=== PATIENT | female | born 1955 | race African-American/Black ===

== ENCOUNTER 2018-10-28 15:37 | Inpatient (IN) ==
[2018-10-28] MEDS: Heparin Drip 25,000 UNIT/250 ML BAG IV.CONT PRN (22:30)
--- NOTE | 2018-10-28 23:34 | P.HPIM ---
History of Present Illness Service: [facility] Primary Care Physician: Arthur Tran Chief Complaint: Cough and congestion History of Present Illness: 63-year-old female with a history of RA, asthma, hypertension and diabetes presented to the ED with complaints of cough and congestion with body aches for the last 2 weeks. Patient states she was seen at an urgent care approximately 1 week ago in which they stated to continue on taking [id number] medications. She states she went through multiple different products and still with no relief. She came into the [place] ER because she was not getting better. She does complain of slight chest pain more so in her left upper extremity, dull in nature, with associated nausea and vomiting. She states the over the counter medications are not helping. She states she has been having intermittent fevers, chills, dysuria and shortness of breath with cough. Inpatient Certification Inpatient Certification: I certify that the inpatient services were ordered in accordance with Medicare regulations governing the order. This includes certification that hospital inpatient services are reasonable and necessary and in the case of services not specified as inpatient-only under 42 CFR 419.22(n), that they are appropriately provided as inpatient services in accordance to with the 2-midnight benchmark under 43 CFR 412.3(e) Estimated Total Length of Stay (Days): 2 Plans for Post Hospital Care: Home Review of Systems Review of Systems: all other systems reviewed are negative [facility] Medical History Medical History Asthma (Acute) Diabetes mellitus (Acute) GERD (gastroesophageal reflux disease) (Acute) HTN (hypertension) (Acute) Hypercholesterolemia (Acute) Migraines (Acute) Rheumatoid arteritis (Acute) Surgical History Surgical History H/O hernia repair (Acute) H/O tubal ligation (Acute) H/O: hysterectomy (Acute) History of appendectomy (Acute) H/O bariatric surgery (Acute) Family History Family History Father Diabetes Social History Social History Substance History: No History of Abuse Second Hand Smoke Exposure: No Smoking Status: Never smoker How Often Do You Have a Drink Containing Alcohol: Never Immunization History Tetanus Immunization: <5 Years Hx Influenza Vaccine This Season: Yes Medications and Allergies Allergies Allergy/AdvReac Type Severity Reaction Status Date / Time aspirin Allergy Mild Itching Verified 10/28/18 16:04 lansoprazole Allergy Mild Itching Verified 10/28/18 16:04 omeprazole Allergy Mild Itching Verified 10/28/18 16:04 pantoprazole Allergy Mild Itching Verified 10/28/18 16:04 penicillin G Allergy Mild Itching Verified 10/28/18 16:04 Sulfa (Sulfonamide Allergy Mild Itching Verified 10/28/18 16:04 Antibiotics) Home Medications Medication Instructions Recorded Confirmed Type ergocalciferol (vitamin D2) 50,000 unit PO QWEEK 10/28/18 10/29/18 History [Vitamin D2] ezetimibe [Zetia] 10 mg PO DAILY 10/28/18 10/29/18 History folic acid 1 mg PO DAILY 10/28/18 10/29/18 History gabapentin 300 mg PO TID 10/28/18 10/29/18 History lidocaine [Lidocaine Pain Relief] 1 patch TOPICAL BID 10/28/18 10/29/18 History metformin 500 mg PO BID 10/28/18 10/29/18 History methotrexate (PF) 0.7 ml SUBCUT QWEEK 10/28/18 10/29/18 History prednisone 2.5 mg PO DAILY 10/28/18 10/29/18 History promethazine [Phenergan] 25 mg NV DAILY PRN 10/28/18 10/29/18 History ranitidine HCl [Zantac 75] 75 mg PO BID PRN 10/28/18 10/29/18 History topiramate [Topamax] 25 mg PO BID 10/28/18 10/29/18 History tramadol 50 mg PO Q6H PRN 10/28/18 10/29/18 History Active Medications: Active Medications Acetaminophen (Tylenol) 650 mg PO Q4H PRN PRN Reason: Temp > 100.4 Heparin Sodium (Porcine) (Heparin Inj) 2,500 units IV.PUSH UNSCH PRN PRN Reason: aPTT 25-39 Heparin Sodium (Porcine) (Heparin Inj) 5,000 units IV.PUSH UNSCH PRN PRN Reason: aPTT < 25 Heparin Sodium/Dextrose (Heparin/D5w 25,000 U/250 Ml) 25,000 unit in 250 mls @ 0 mls/hr IV.CONT TITRATE PRN; Protocol PRN Reason: Per Protocol Nitroglycerin (Nitrostat Sl) 0.4 mg SL Q5M PRN PRN Reason: CHEST PAIN Ondansetron HCl (Zofran Inj) 4 mg IV.PUSH Q6H PRN PRN Reason: NAUSEA OR VOMITING Sodium Chloride (Ns Flush) 2 ml IV.FLUSH BID HARRIS Sodium Chloride (Ns Flush) 2 ml IV.FLUSH PRN PRN PRN Reason: FLUSH AFTER USING IV ACCESS Physical Exam Vital signs: Intake & Output 10/28/18 10/28/18 10/29/18 06:59 18:59 06:59 Weight 87 kg Other: Weight On Admission 87 kg Narrative: GENERAL: Well-nourished patient in no acute distress SKIN: Warm and dry. No open lesions or abrasions EYES: No scleral icterus. No injection or drainage. NECK: Supple, trachea midline. No JVD or lymphadenopathy. CARDIOVASCULAR: Regular rate and rhythm without murmurs, gallops, or rubs. RESPIRATORY: Breath sounds equal bilaterally. No accessory muscle use. GASTROINTESTINAL: Abdomen soft, non-tender, nondistended. MUSCULOSKELETAL: No cyanosis, or edema. Caprini VTE Risk Assessment Caprini VTE Risk Assessment: No/Low Risk (score <= 1) Caprini Risk Assessment Model: Point Value = 1 Point Value = 2 Point Value = 3 Point Value = 5 Age 41-60 Minor surgery BMI > 25 kg/m2 Swollen legs Varicose veins or History of unexplained or recurrent spontaneous Oral contraceptives or hormone replacement Sepsis (< 1 month) Serious lung disease, including pneumonia (< 1 month) Abnormal pulmonary function Acute myocardial infarction Congestive heart failure (< 1 month) History of inflammatory bowel disease Medical patient at bed rest Age 61-74 Arthroscopic surgery Major open surgery (> 45 min) Laparoscopic surgery (> 45 min) Malignancy Confined to bed (> 72 hours) Immobilizing plaster cast Central venous access Age >= 75 History of VTE Family history of VTE Factor V Leiden Prothrombin [id number] Lupus anticoagulant Anticardiolipin antibodies Elevated serum homocysteine Heparin-induced thrombocytopenia Other congenital or acquired thrombophilia Stroke (< 1 month) Elective arthroplasty Hip, pelvis, or leg fracture Acute spinal cord injury (< 1 month) Prophylaxis Regimen: Total Risk Factor Score Risk Level Prophylaxis Regimen 0-1 Low Early ambulation 2 Moderate Order ONE of the following: *Sequential Compression Device (SCD) *Heparin 5000 units SQ BID 3-4 Higher Order ONE of the following medications: *Heparin 5000 units SQ TID *Enoxaparin/Lovenox 40 mg SQ daily (WT < 150 kg, CrCl > 30 mL/min) *Enoxaparin/Lovenox 30 mg SQ daily (WT < 150 kg, CrCl > 10-29 mL/min) *Enoxaparin/Lovenox 30 mg SQ BID (WT < 150 kg, CrCl > 30 mL/min) AND/OR *Sequential Compression Device (SCD) 5 or more Highest Order ONE of the following medications: *Heparin 5000 units SQ TID (Preferred with Epidurals) *Enoxaparin/Lovenox 40 mg SQ daily (WT < 150 kg, CrCl > 30 mL/min) *Enoxaparin/Lovenox 30 mg SQ daily (WT < 150 kg, CrCl > 10-29 mL/min) *Enoxaparin/Lovenox 30 mg SQ BID (WT < 150 kg, CrCl > 30 mL/min) AND *Sequential Compression Device (SCD) Assessment and Plan Plan 63-year-old female with a history of RA, asthma, hypertension and diabetes presented to the ED with complaints of cough and congestion with body aches for the last 2 weeks. NSTEMI, with atypical chest pain Troponin 0.19 -Serial troponin and EKGs -Heparin drip -Consult to cardiology for evaluation Elevated BNP, no history of CHF BNP 335 -2D echo ordered Hypertension, chronic -Resume home medications and monitor vitals Diabetes, chronic Accu-Cheks with sliding scale insulin Hold metformin for now RA, chronic -Resume home medications DVT prophylaxis: Heparin The exam, history, and the medical decision-making described in the above note were completed with the assistance of the mid-level provider. I reviewed and agree with the findings presented. I attest that I had a [id number] encounter with the patient on the same day, and personally performed and documented my assessment and findings in the medical record. H&P: Quality VTE Deep Vein Thrombosis/Pulmonary Embolism Present on Admission: No
[2018-10-29 00:40] LABS: Troponin I 0.15 ng/mL (0.02-0.05)
[2018-10-29 00:52] LABS: CKMB Percent 1.3 % (0.0-4.0); Creatine Kinase MB 2.5 ng/mL (0.5-3.6)
[2018-10-29] MEDS ORDERED: Heparin 10,000 UNITS/10 ML Vial (for IV use) IV.PUSH PRN ×2 (04:23→04:31)
[2018-10-29 05:11] LABS: Baso % (Auto) 0.4 % (0.0-2.0); Hemoglobin 13.3 gm/dL (11.6-15.3); Lymph # (Auto) 1.5 th/mm3 (1.0-4.8); Mean Corpuscular HGB Conc 33.3 % (32.0-36.0); Mean Corpuscular Hemoglobin 31.6 pg (27.0-34.0); Mean Corpuscular Volume 94.9 fL (80.0-100.0); Mean Platelet Volume 8.2 fL (7.0-11.0); Mono # (Auto) 0.1 th/mm3 (0.0-0.9); Mono % (Auto) 2.3 % (0.0-8.0); Neut # (Auto) 4.2 th/mm3 (1.8-7.7); Neut % (Auto) 72.3 % (16.0-70.0); Platelet Count 238 th/mm3 (150-450); Red Blood Count 4.21 mil/mm3 (4.00-5.30); Red Cell Distribution Width 14.2 % (11.6-17.2); White Blood Count 5.8 th/mm3 (4.0-11.0)
[2018-10-29 05:30] LABS: Anion Gap 10 meq/L (5-15); Blood Urea Nitrogen 10 mg/dL (7-18); Calcium 8.6 mg/dL (8.5-10.1); Carbon Dioxide 20.4 meq/L (21.0-32.0); Chloride 113 meq/L (98-107); Glomerular Filtration Rate Greater Than 89 mL/min (>89); Glucose,Random 136 mg/dL (74-106); Potassium 4.2 meq/L (3.5-5.1); Sodium 143 meq/L (136-145)
[2018-10-29 05:33] LABS: Creatine Kinase 198 U/L (26-192); Troponin I 0.13 ng/mL (0.02-0.05)
[2018-10-29 05:46] LABS: CKMB Percent 1.1 % (0.0-4.0); Creatine Kinase MB 2.1 ng/mL (0.5-3.6)
--- NOTE | 2018-10-29 10:15 | P.PNIM ---
Subjective Interval history: Patient in the bed appears in nad. She is awaiting for stress test. No chest pain overnight. Some sob. No n/v/d/c. Physical Exam Vital signs: Vital Signs 10/29/18 00:00 10/29/18 02:00 10/29/18 03:00 Temperature 98.4 F Pulse Rate 88 84 87 Respiratory Rate 20 Blood Pressure 105/67 Pulse Oximetry 94 L 10/29/18 04:00 10/29/18 05:00 10/29/18 06:00 Temperature 97.8 F Pulse Rate 83 97 H 91 H Respiratory Rate 16 Blood Pressure 135/81 Pulse Oximetry 94 L 10/29/18 07:00 10/29/18 09:23 Temperature 97.9 F Pulse Rate 80 98 H Respiratory Rate 18 Blood Pressure 110/70 Pulse Oximetry 96 Intake & Output 10/28/18 10/29/18 10/29/18 18:59 06:59 18:59 Intake Total 480 / 480 Output Total 650 / 650 Balance -170 / -170 Weight 87 kg Intake: Oral 480 / 480 Output: Urine 650 / 650 Other: Date of Last Bowel Movement 10/29/18 10/29/18 # Bowel Movements 1 Weight On Admission 87 kg Narrative: GENERAL: Well-nourished patient in no acute distress CARDIOVASCULAR: Regular rate and rhythm without murmurs, gallops, or rubs. RESPIRATORY: Breath sounds equal bilaterally. No accessory muscle use. GASTROINTESTINAL: Abdomen soft, non-tender, nondistended. MUSCULOSKELETAL: No cyanosis, or edema. Results Labs CBC & Chem 7: 10/29/18 04:31 10/29/18 04:31 Labs: Microbiology 10/29/18 01:20 Stool Stool Occult Blood (REBEKAH) - Final Hemoccult negative Assessment and Plan Plan 63-year-old female with a history of RA, asthma, hypertension and diabetes presented to the ED with complaints of cough and congestion with body aches for the last 2 weeks. NSTEMI, with atypical chest pain Troponin 0.19 on admission trending down -Heparin drip -Consult to cardiology for evaluation, plan for stress test per cardio fawn Schuster cardiology Elevated BNP, no history of CHF BNP 335 -2D echo pending Hypertension, chronic -Resume home medications and monitor vitals Diabetes, chronic Accu-Cheks with sliding scale insulin Hold metformin for now RA, chronic -Resume home medications DVT prophylaxis: Heparin Discussed with the patient, nurse Progress Note: Quality VTE Deep Vein Thrombosis/Pulmonary Embolism Present on Admission: No
--- NOTE | 2018-10-29 10:15 | ECHRPT ---
Indication: HEART FAILURE CONCLUSIONS There is diffuse global hypokinesis with distinct regional wall motion abnormalities. The left ventricular systolic function is severely reduced with an estimated ejection fraction less than 20%. Wall thickness is normal. The left atrial size is mildly dilated. Nhtfuqza-gv-yzkxiw mitral valve regurgitation. There is mild tricuspid valve regurgitation. The estimated pulmonary arterial pressure is 35.8 mmHg. Trivial pulmonary valve regurgitation. BP: / HR: Rhythm: Sinus MEASUREMENTS (Male / Female) Normal Values Technical Quality:Fair 2D ECHO LV Diastolic Diameter PLAX 6.1 cm 4.2 - 5.9 / 3.9 - 5.3 cm LV Systolic Diameter PLAX 5.8 cm IVS Diastolic Thickness 0.9 cm 0.6 - 1.0 / 0.6 - 0.9 cm LVPW Diastolic Thickness 0.9 cm 0.6 - 1.0 / 0.6 - 0.9 cm LV Relative Wall Thickness 0.3 RV Internal Dim ED PLAX 2.0 cm LVOT Diameter 1.9 cm Aortic Root Diameter 2.8 cm LA Systolic Diameter LX 3.3 cm 3.0 - 4.0 / 2.7 - 3.8 cm M-MODE AV Cusp Separation MM 2.2 cm DOPPLER AV Peak Velocity 99.3 cm/s AV Peak Gradient 3.9 mmHg AV Mean Gradient 2.0 mmHg AV Velocity Time Integral 16.3 cm LVOT Peak Velocity 86.5 cm/s LVOT Peak Gradient 3.0 mmHg LVOT Velocity Time Integral 14.9 cm AV Area Cont Eq vti 2.6 cm AV Area Cont Eq pk 2.5 cm Mitral E Point Velocity 102.0 cm/s LV E' Septal Velocity 10.2 cm/s Mitral E to LV E' Septal Ratio 10.0 TR Peak Velocity 254.0 cm/s TR Peak Gradient 25.8 mmHg Right Atrial Pressure 10.0 mmHg Pulmonary Artery Systolic Pressu 35.8 mmHg Right Ventricular Systolic Press 35.8 mmHg PV Peak Velocity 49.6 cm/s PV Peak Gradient 1.0 mmHg FINDINGS LEFT VENTRICLE There is diffuse global hypokinesis with distinct regional wall motion abnormalities. The left ventricular systolic function is severely reduced with an estimated ejection fraction less than 20%. Wall thickness is normal. RIGHT VENTRICLE Normal right ventricular size and systolic function. LEFT ATRIUM The left atrial size is mildly dilated. RIGHT ATRIUM The right atrial size is normal. ATRIAL SEPTUM No atrial level shunt is demonstrated by color flow Doppler interrogation. AORTA The aortic root and proximal ascending aorta are normal in size on limited imaging. MITRAL VALVE Iuxppfhq-id-fpvzoh mitral valve regurgitation. AORTIC VALVE Trileaflet aortic valve. No aortic valve stenosis or regurgitation. TRICUSPID VALVE There is mild tricuspid valve regurgitation. The estimated pulmonary arterial pressure is 35.8 mmHg. PULMONARY VALVE Trivial pulmonary valve regurgitation. VESSELS The inferior vena cava is normal in size. PERICARDIUM No pericardial effusion. Juvenal Garcia MD, FACC (Electronically Signed) Final Date:29 October 2018 10:14
[2018-10-29] MEDS ORDERED: Regadenoson Inj 0.4 MG/5 ML Syringe IV.PUSH ONE (10:27)
--- NOTE | 2018-10-29 14:15 | P.CONCA ---
History of Present Illness Service: Cardiology Consult date: 10/29/18 Requesting Physician: Dee Manzano Reason for Consult: NSTEMI Primary Care Provider: Arthur Tran Chief Complaint: Cough and congestion History of Present Illness: This is a 63-year-old female with a past medical history of RA , asthma, hypertension and diabetes. She states that she has had a cough and congestion for the last 2 weeks and was evaluated at an Urgent care facility approximately one week ago. She was informed to continue using ewqc-gzt-ziptzdj medications at that time. She states that she has used many moah-tjh-sbqhtvu medications without relief. She came to the Emergency Department yesterday for further evaluation. She stated that along with the cough and congestion, she had a dull chest pain that radiated to the left shoulder with nausea and vomiting. Troponin level was 0.15 and is down to 0.13. She currently, denies any CP, pressure, palpitations, dizziness, edema or SOB. She does complain of congestion and cough. She was evaluated down in Nuc Med. Review of Systems All other systems reviewed negative except as stated in HPI PMFSH - History History Provided By: Patient - Medical History Medical History: Medical History (Last Reviewed 10/29/18 @ 00:17 by PAYTON Bowen) Asthma Diabetes mellitus GERD (gastroesophageal reflux disease) HTN (hypertension) Hypercholesterolemia Migraines Rheumatoid arteritis - Surgical History Surgical History: Surgical History (Last Updated 10/29/18 @ 00:18 by PAYTON Bowen) H/O hernia repair H/O tubal ligation H/O: hysterectomy History of appendectomy H/O bariatric surgery - Family History Family History: Family History (Last Reviewed 10/29/18 @ 00:19 by PAYTON Bowen) Father Diabetes - Tobacco History Second Hand Smoke Exposure: No Smoking Status: Never smoker - Alcohol History How Often Do You Have a Drink Containing Alcohol: Never - Substance Use History Substance History: No History of Abuse - Immunization History Tetanus Immunization: <5 Years Hx Influenza Vaccine This Season: Yes Medications and Allergies Allergies Allergy/AdvReac Type Severity Reaction Status Date / Time aspirin Allergy Mild Itching Verified 10/28/18 16:04 lansoprazole Allergy Mild Itching Verified 10/28/18 16:04 omeprazole Allergy Mild Itching Verified 10/28/18 16:04 pantoprazole Allergy Mild Itching Verified 10/28/18 16:04 penicillin G Allergy Mild Itching Verified 10/28/18 16:04 Sulfa (Sulfonamide Allergy Mild Itching Verified 10/28/18 16:04 Antibiotics) Home Medications Medication Instructions Recorded Confirmed Type ergocalciferol (vitamin D2) 50,000 unit PO QWEEK 10/28/18 10/29/18 History [Vitamin D2] ezetimibe [Zetia] 10 mg PO DAILY 10/28/18 10/29/18 History folic acid 1 mg PO DAILY 10/28/18 10/29/18 History gabapentin 300 mg PO TID 10/28/18 10/29/18 History lidocaine [Lidocaine Pain Relief] 1 patch TOPICAL BID 10/28/18 10/29/18 History metformin 500 mg PO BID 10/28/18 10/29/18 History methotrexate (PF) 0.7 ml SUBCUT QWEEK 10/28/18 10/29/18 History prednisone 2.5 mg PO DAILY 10/28/18 10/29/18 History promethazine [Phenergan] 25 mg PA DAILY PRN 10/28/18 10/29/18 History ranitidine HCl [Zantac 75] 75 mg PO BID PRN 10/28/18 10/29/18 History topiramate [Topamax] 25 mg PO BID 10/28/18 10/29/18 History tramadol 50 mg PO Q6H PRN 10/28/18 10/29/18 History Active Medications: Active Medications Acetaminophen (Tylenol) 650 mg PO Q4H PRN PRN Reason: Temp > 100.4 Albuterol (Albuterol Neb (Prn)) 2.5 mg NEB UNSCH PRN PRN Reason: SHORTNESS OF BREATH/WHEEZING Albuterol (Duoneb Neb (Prn)) 1 ampul NEB UNSCH PRN PRN Reason: SHORTNESS OF BREATH/WHEEZING Heparin Sodium (Porcine) (Heparin Inj) 2,500 units IV.PUSH UNSCH PRN PRN Reason: aPTT 25-39 Heparin Sodium (Porcine) (Heparin Inj) 5,000 units IV.PUSH UNSCH PRN PRN Reason: aPTT < 25 Heparin Sodium/Dextrose (Heparin/D5w 25,000 U/250 Ml) 25,000 unit in 250 mls @ 0 mls/hr IV.CONT TITRATE PRN; Protocol PRN Reason: Per Protocol Last Titration: 10/29/18 11:25 Dose: 7 units/hr, 0.07 mls/hr Nitroglycerin (Nitrostat Sl) 0.4 mg SL Q5M PRN PRN Reason: CHEST PAIN Ondansetron HCl (Zofran Inj) 4 mg IV.PUSH Q6H PRN PRN Reason: NAUSEA OR VOMITING Sodium Chloride (Ns Flush) 2 ml IV.FLUSH BID HARRIS Last Admin: 10/29/18 09:30 Dose: 2 ml Sodium Chloride (Ns Flush) 2 ml IV.FLUSH PRN PRN PRN Reason: FLUSH AFTER USING IV ACCESS Exam Vital signs: Vital Signs 10/29/18 00:00 10/29/18 02:00 10/29/18 03:00 Temperature 98.4 F Pulse Rate 88 84 87 Respiratory Rate 20 Blood Pressure 105/67 Pulse Oximetry 94 L 10/29/18 04:00 10/29/18 05:00 10/29/18 06:00 Temperature 97.8 F Pulse Rate 83 97 H 91 H Respiratory Rate 16 Blood Pressure 135/81 Pulse Oximetry 94 L 10/29/18 07:00 10/29/18 09:23 10/29/18 12:39 Temperature 97.9 F 98 F Pulse Rate 80 98 H 98 H Respiratory Rate 18 18 Blood Pressure 110/70 125/80 Pulse Oximetry 96 95 Intake & Output 10/28/18 10/29/18 10/29/18 18:59 06:59 18:59 Intake Total 480 / 480 Output Total 650 / 650 Balance -170 / -170 Weight 87 kg Intake: Oral 480 / 480 Output: Urine 650 / 650 Other: Date of Last Bowel Movement 10/29/18 10/29/18 # Bowel Movements 1 Weight On Admission 87 kg - Constitutional no acute distress - Routine HEENT Exam Head: Present: normocephalic Eye: Present: PERRL ENT: Present: mucous membranes moist - Routine Neck Exam Present: full ROM - Routine Respiratory Exam Present: CTA bilaterally - Routine Cardiovascular Exam Present: S1, S2, murmur, tachycardia. Absent: gallop, rubs - Routine Abdominal Exam Present: normoactive bowel sounds - Routine Extremities Exam Present: full ROM, pulses intact, normal capillary refill. Absent: cyanosis, clubbing, edema - Routine Skin Exam Present: intact - Routine Neurological Exam Present: oriented X3 Results 10/29/18 04:31 10/29/18 04:31 Cardiac Enzymes 10/29/18 10/29/18 Range/Units 00:13 04:31 CK-MB (CK-2) 2.5 2.1 (0.5-3.6) ng/mL Troponin I 0.15 H 0.13 H (0.02-0.05) ng/mL Coagulation 10/29/18 10/29/18 10/29/18 Range/Units 04:31 05:40 09:16 APTT 99.4 H* D 90.7 H* 52.8 H D (23.4-31.7) sec CBC 10/29/18 Range/Units 04:31 WBC 5.8 (4.0-11.0) th/mm3 RBC 4.21 (4.00-5.30) mil/mm3 Hgb 13.3 (11.6-15.3) gm/dL Hct 40.0 (35.0-46.0) % Plt Count 238 (150-450) th/mm3 Neut # (Auto) 4.2 (1.8-7.7) th/mm3 Lymph # (Auto) 1.5 (1.0-4.8) th/mm3 [place] # (Auto) 0.1 (0.0-0.9) th/mm3 Eos # (Auto) 0.0 (0.0-0.4) th/mm3 Baso # (Auto) 0.0 (0.0-0.2) th/mm3 Comprehensive Metabolic Panel 10/29/18 Range/Units 04:31 Sodium 143 (136-145) meq/L Potassium 4.2 D (3.5-5.1) meq/L Chloride 113 H (98-107) meq/L Carbon Dioxide 20.4 L (21.0-32.0) meq/L BUN 10 (7-18) mg/dL Creatinine 0.69 (0.50-1.00) mg/dL Calcium 8.6 (8.5-10.1) mg/dL Intake and Output 10/28/18 10/29/18 10/29/18 22:59 06:59 14:59 Intake Total 480 / 480 Output Total 650 / 650 Balance -170 / -170 Intake: Oral 480 / 480 Output: Urine 650 / 650 Other: Date of Last Bowel Movement 10/29/18 10/29/18 # Bowel Movements 1 Weight 87 kg 87 kg Weight On Admission 87 kg Assessment and Plan - Assessment (1) NSTEMI (non-ST elevated myocardial infarction) Code(s): I21.4 - Non-ST elevation (NSTEMI) myocardial infarction Status: Acute (2) New onset of congestive heart failure Code(s): I50.9 - Heart failure, unspecified Status: Acute (3) Hypertension Code(s): I10 - Essential (primary) hypertension Status: Acute (4) Diabetes Code(s): E11.9 - Type 2 diabetes mellitus without complications Status: Acute - Plan 2D echo on 10/29/18 showed global hypokinesis, severely reduced LV function with an EF 20%, moderate to severe MR and mild TR. We will start low dose Entresto 24 mg/26 mg BID and will monitor BMP. We will also start Coreg 3.125 mg PO BID. We scheduled an adenosine stress test. Continue to monitor the patient on telemetry. We will continue to monitor the patient during her hospitalization. The patient was seen and evaluated by Dr. Schuster who participated in care, management and decision making. - Attending Attestation Patient seen and examined. I reviewed and agree with the evaluation and plan as presented. Start Entresto and carvedilol for CHF. Adenosine nuc ST today.
--- NOTE | 2018-10-29 14:58 | NM ---
EXAM DATE: 10/29/2018 2:49 PM EST AGE/SEX: 63 years / Female INDICATIONS:Coronary artery disease. Angina CLINICAL DATA: This is the patient's initial encounter. Patient reports that signs and symptoms have been present for 1 day and indicates a pain score of 4/10. MEDICAL/SURGICAL HISTORY: Diabetes mellitus type II. Gastroesophageal reflux disease. Hyperch olesterolemia. Hypertension. Hysterectomy. Appendectomy. Tubal ligation. COMPARISON: No prior exams available for comparison. DOSE: 8.6 mCi Tc 99m Myoview at rest 26.5 mCi [id number] at stress 0.4 mg Lexiscan STRESS SYMPTOMS: None. EJECTION FRACTION: 28 % TECHNIQUE: The patient underwent pharmacologic stress with infusion of prescribed dose. Continuous ECG tracing was monitored during stress. Gated SPECT imaging was performed after stress and conventi onal SPECT imaging was performed at rest. The examination was performed on a SPECT/CT scanner, both attenuation and non-corrected datasets were reviewed. FINDINGS: Distribution: The maximum perfused segment at stress is in the anterior wall. Raw data images demons trate significant attenuation from the diaphragm in the apical segments and significant attenuation l aterally from breast or axilla. Perfusion Study: On the perfusion scan, there is decreased uptake in the apical and mid ventricular inferolateral wall which correlates to the area of diaphragmatic attenuation. Perfusion to the remai nder of the myocardial segments is within normal limits. The sum stress score is 15 and most of the c ontribution is from area of attenuation. On the resting injections scan, the pattern of perfusion is unchanged and there is no evidence of redistribution. Left ventricular cavity appears dilated. Gated Study: There is limited wall motion in the apex and inferior segments. The ejection fraction is significantly depressed at 28%. RISK CATEGORY: High (>3% Annual Mortality Rate) CONCLUSION: 1. No evidence of stress-induced ischemia. 2. There is a fixed perfusion defect in the apical and mid segments of the inferolateral wall, uncha nged between stress and rest and partially due to to diaphragmatic attenuation. However, the sixth pe rfusion defect persists on the attenuation corrected dataset suggesting coexistence of infarction or scar. 3. Depressed ejection fraction of 28% with global hypokinesia and left ventricular cavity dilation. Electronically signed by: Arthur Gan MD Board Certified Radiologist 10/29/2018 2:57 PM EST
[2018-10-29] MEDS ORDERED: Benzonatate 100 MG Capsule PO PRN (15:45)
[2018-10-29] MEDS ORDERED: Dextrose 50% in Water 50 ML Vial IV.PUSH PRN (15:59)
[2018-10-29] MEDS: Acetaminophen 325 MG Tablet PO PRN (16:06)
[2018-10-29] MEDS: Gabapentin 300 MG Capsule PO SCH (17:18)
[2018-10-29] MEDS: Insulin NovoLOG Aspart Correctional Sugar Inj SQ SCH ×2 (17:53→21:07)
[2018-10-29] MEDS: Topiramate 25 MG Tablet PO SCH (21:06)
[2018-10-30] MEDS: Heparin Drip 25,000 UNIT/250 ML BAG IV.CONT PRN (01:50)
[2018-10-30 06:45] LABS: Hematocrit 40.9 % (35.0-46.0); Hemoglobin 14.1 gm/dL (11.6-15.3); Mean Corpuscular HGB Conc 34.4 % (32.0-36.0); Mean Corpuscular Hemoglobin 32.4 pg (27.0-34.0); Mean Corpuscular Volume 94.2 fL (80.0-100.0); Mean Platelet Volume 8.1 fL (7.0-11.0); Platelet Count 221 th/mm3 (150-450); Red Blood Count 4.34 mil/mm3 (4.00-5.30); Red Cell Distribution Width 14.2 % (11.6-17.2); White Blood Count 5.9 th/mm3 (4.0-11.0)
[2018-10-30 07:07] LABS: Anion Gap 6 meq/L (5-15); Blood Urea Nitrogen 11 mg/dL (7-18); Calcium 8.3 mg/dL (8.5-10.1); Carbon Dioxide 24.7 meq/L (21.0-32.0); Chloride 114 meq/L (98-107); Glomerular Filtration Rate Greater Than 89 mL/min (>89); Glucose,Random 114 mg/dL (74-106); Potassium 3.6 meq/L (3.5-5.1); Sodium 145 meq/L (136-145)
[2018-10-30] MEDS: Insulin NovoLOG Aspart Correctional Sugar Inj SQ SCH ×4 (09:04→21:18)
[2018-10-30] MEDS: Acetaminophen 325 MG Tablet PO PRN (09:08)
[2018-10-30] MEDS: Topiramate 25 MG Tablet PO SCH ×2 (09:42→21:47)
[2018-10-30] MEDS: Gabapentin 300 MG Capsule PO SCH ×3 (09:42→17:39)
--- NOTE | 2018-10-30 15:53 | P.PNCA ---
Subjective Interval history: Patient denies any pressure, palpitations, dizziness or edema. She states that she had two episodes of chest pain last night, denied any other symptoms. Medications and Allergies Allergies Allergy/AdvReac Type Severity Reaction Status Date / Time aspirin Allergy Mild Itching Verified 10/28/18 16:04 lansoprazole Allergy Mild Itching Verified 10/28/18 16:04 omeprazole Allergy Mild Itching Verified 10/28/18 16:04 pantoprazole Allergy Mild Itching Verified 10/28/18 16:04 penicillin G Allergy Mild Itching Verified 10/28/18 16:04 Sulfa (Sulfonamide Allergy Mild Itching Verified 10/28/18 16:04 Antibiotics) Home Medications Medication Instructions Recorded Confirmed Type ergocalciferol (vitamin D2) 50,000 unit PO QWEEK 10/28/18 10/29/18 History [Vitamin D2] ezetimibe [Zetia] 10 mg PO DAILY 10/28/18 10/29/18 History folic acid 1 mg PO DAILY 10/28/18 10/29/18 History gabapentin 300 mg PO TID 10/28/18 10/29/18 History lidocaine [Lidocaine Pain Relief] 1 patch TOPICAL BID 10/28/18 10/29/18 History metformin 500 mg PO BID 10/28/18 10/29/18 History methotrexate (PF) 0.7 ml SUBCUT QWEEK 10/28/18 10/29/18 History prednisone 2.5 mg PO DAILY 10/28/18 10/29/18 History promethazine [Phenergan] 25 mg [place] DAILY PRN 10/28/18 10/29/18 History ranitidine HCl [Zantac 75] 75 mg PO BID PRN 10/28/18 10/29/18 History topiramate [Topamax] 25 mg PO BID 10/28/18 10/29/18 History tramadol 50 mg PO Q6H PRN 10/28/18 10/29/18 History Active Medications: Active Medications Acetaminophen (Tylenol) 650 mg PO Q4H PRN PRN Reason: Temp > 100.4 Last Admin: 10/30/18 09:08 Dose: 650 mg Albuterol (Albuterol Neb (Prn)) 2.5 mg NEB UNSCH PRN PRN Reason: SHORTNESS OF BREATH/WHEEZING Albuterol (Duoneb Neb (Prn)) 1 ampul NEB UNSCH PRN PRN Reason: SHORTNESS OF BREATH/WHEEZING Benzonatate (Tessalon Perles) 100 mg PO Q8H PRN PRN Reason: COUGH Carvedilol (Coreg) 3.125 mg PO BID [facility] Last Admin: 10/30/18 09:42 Dose: 3.125 mg Dextrose (D50w Vial) 50 ml IV.PUSH UNSCH PRN PRN Reason: PER HYPOGLYCEMIA PROTOCOL Famotidine (Pepcid) 10 mg PO BID PRN PRN Reason: ACID REFLUX Gabapentin (Neurontin) 300 mg PO TID [facility] Last Admin: 10/30/18 13:31 Dose: 300 mg Glucagon (Glucagon Inj) 1 mg OTHER PRN PRN PRN Reason: for Hypoglycemia Protocol Heparin Sodium (Porcine) (Heparin Inj) 2,500 units IV.PUSH UNSCH PRN PRN Reason: aPTT 25-39 Heparin Sodium (Porcine) (Heparin Inj) 5,000 units IV.PUSH UNSCH PRN PRN Reason: aPTT < 25 Heparin Sodium/Dextrose (Heparin/D5w 25,000 U/250 Ml) 25,000 unit in 250 mls @ 0 mls/hr IV.CONT TITRATE PRN; Protocol PRN Reason: Per Protocol Last Admin: 10/30/18 01:50 Dose: 7 units/hr, 0.07 mls/hr Insulin Aspart (Novolog Insulin Correctional Sugar Inj) 0 unit SQ ACHS [facility]; Protocol Last Admin: 10/30/18 12:21 Dose: Not Given Miscellaneous (Pill Splitter) 1 each OTHER UNSCH PRN PRN Reason: SEE LABEL COMMENTS Nitroglycerin (Nitrostat Sl) 0.4 mg SL Q5M PRN PRN Reason: CHEST PAIN Ondansetron HCl (Zofran Inj) 4 mg IV.PUSH Q6H PRN PRN Reason: NAUSEA OR VOMITING Sacubitril/Valsartan (Entresto 24 Mg/26 Mg Tablet) 1 tab PO BID [facility] Last Admin: 10/30/18 09:42 Dose: 1 tab Sodium Chloride (Ns Flush) 2 ml IV.FLUSH BID [facility] Last Admin: 10/30/18 09:43 Dose: Not Given Sodium Chloride (Ns Flush) 2 ml IV.FLUSH PRN PRN PRN Reason: FLUSH AFTER USING IV ACCESS Topiramate (Topamax) 25 mg PO BID [facility] Last Admin: 10/30/18 09:42 Dose: 25 mg Tramadol HCl (Ultram) 50 mg PO Q6H PRN PRN Reason: Pain 1-10 Physical Exam Vital signs: Vital Signs 10/29/18 17:00 10/29/18 17:16 10/29/18 18:22 Temperature 97.8 F Pulse Rate 103 H 109 H 105 H Respiratory Rate 18 Blood Pressure 124/74 Pulse Oximetry 97 10/29/18 19:00 10/29/18 19:54 10/29/18 20:00 Temperature 97.6 F Pulse Rate 97 H 96 H 107 H Respiratory Rate 18 Blood Pressure 147/77 H Pulse Oximetry 94 L 10/29/18 21:00 10/29/18 22:00 10/29/18 23:00 Temperature Pulse Rate 104 H 113 H 92 H Respiratory Rate Blood Pressure Pulse Oximetry 10/30/18 00:00 10/30/18 00:47 10/30/18 02:00 Temperature 97.8 F Pulse Rate 94 H 94 H 75 Respiratory Rate 18 Blood Pressure 135/81 Pulse Oximetry 94 L 10/30/18 03:00 10/30/18 04:00 10/30/18 05:00 Temperature 98.3 F Pulse Rate 88 80 77 Respiratory Rate 18 Blood Pressure 135/81 Pulse Oximetry 94 L 10/30/18 06:00 10/30/18 07:00 10/30/18 08:00 Temperature Pulse Rate 73 84 90 Respiratory Rate Blood Pressure Pulse Oximetry 10/30/18 08:57 10/30/18 09:00 10/30/18 10:00 Temperature 97.7 F Pulse Rate 76 90 90 Respiratory Rate 14 Blood Pressure 101/68 Pulse Oximetry 95 10/30/18 11:00 10/30/18 12:00 10/30/18 13:00 Temperature 97.3 F L Pulse Rate 84 82 84 Respiratory Rate 16 Blood Pressure 103/68 Pulse Oximetry 96 10/30/18 14:00 Temperature Pulse Rate 88 Respiratory Rate Blood Pressure Pulse Oximetry Intake & Output 10/29/18 10/30/18 10/30/18 18:59 06:59 18:59 Intake Total 730 / 730 Output Total 650 / 650 Balance 80 / 80 Weight 92 kg Intake: IV 250 / 250 Heparin/D5W 25,000 U/250 mL 25, 250 / 250 000 unit In 250 ml @ Per Protocol IV.CONT TITRATE PRN Rx #:[id number] Oral 480 / 480 Output: Urine 650 / 650 Other: Date of Last Bowel Movement 10/29/18 10/29/18 10/29/18 - Constitutional no acute distress - Routine HEENT Exam Head: Present: normocephalic Eye: Present: PERRL ENT: Present: mucous membranes moist - Routine Neck Exam Present: full ROM - Routine Respiratory Exam Present: CTA bilaterally - Routine Cardiovascular Exam Present: S1, S2, murmur. Absent: gallop, rubs - Routine Abdominal Exam Present: normoactive bowel sounds - Routine Extremities Exam Present: full ROM, pulses intact, normal capillary refill. Absent: cyanosis, clubbing, edema - Routine Skin Exam Present: intact - Routine Neurological Exam Present: oriented X3 - Detailed Neurological Exam: Coma Scale Eye Opening: Spontaneous Verbal Response: Oriented Motor Response: Obey commands Linsey Coma Scale Total: 15 - Routine Psychiatric Exam Present: normal affect Results 10/30/18 06:11 10/30/18 06:11 Cardiac Enzymes 10/29/18 10/29/18 10/29/18 Range/Units 00:13 04:31 04:31 CK-MB (CK-2) 2.5 2.1 (0.5-3.6) ng/mL Troponin I 0.15 H 0.13 H (0.02-0.05) ng/mL B-Natriuretic Peptide 374 H (0-100) pg/mL Coagulation 10/29/18 10/29/18 10/29/18 Range/Units 04:31 04:31 05:40 APTT 99.4 H* D 90.7 H* (23.4-31.7) sec B-Natriuretic Peptide 374 H (0-100) pg/mL 10/29/18 10/29/18 10/30/18 Range/Units 09:16 16:22 06:11 APTT 52.8 H D 47.1 H 46.0 H (23.4-31.7) sec B-Natriuretic Peptide (0-100) pg/mL CBC 10/29/18 10/30/18 Range/Units 04:31 06:11 WBC 5.8 5.9 (4.0-11.0) th/mm3 RBC 4.21 4.34 (4.00-5.30) mil/mm3 Hgb 13.3 14.1 (11.6-15.3) gm/dL Hct 40.0 40.9 (35.0-46.0) % Plt Count 238 221 (150-450) th/mm3 Neut # (Auto) 4.2 (1.8-7.7) th/mm3 Lymph # (Auto) 1.5 (1.0-4.8) th/mm3 [place] # (Auto) 0.1 (0.0-0.9) th/mm3 Eos # (Auto) 0.0 (0.0-0.4) th/mm3 Baso # (Auto) 0.0 (0.0-0.2) th/mm3 Comprehensive Metabolic Panel 10/29/18 10/30/18 Range/Units 04:31 06:11 Sodium 143 145 (136-145) meq/L Potassium 4.2 D 3.6 (3.5-5.1) meq/L Chloride 113 H 114 H (98-107) meq/L Carbon Dioxide 20.4 L 24.7 (21.0-32.0) meq/L BUN 10 11 (7-18) mg/dL Creatinine 0.69 0.75 (0.50-1.00) mg/dL Calcium 8.6 8.3 L (8.5-10.1) mg/dL Intake and Output 10/30/18 10/30/18 10/30/18 06:59 14:59 22:59 Intake Total 730 / 730 Output Total 650 / 650 Balance 80 / 80 Intake: IV 250 / 250 Heparin/D5W 25,000 U/250 mL 25, 250 / 250 000 unit In 250 ml @ Per Protocol IV.CONT TITRATE PRN Rx #:[id number] Oral 480 / 480 Output: Urine 650 / 650 Other: Date of Last Bowel Movement 10/29/18 10/29/18 Weight 92 kg - Imaging and Cardiology Imaging: Impressions Myocardial Perfusion Scan Nuc Med 10/29/18 00:00 CONCLUSION: 1. No evidence of stress-induced ischemia. 2. There is a fixed perfusion defect in the apical and mid segments of the inferolateral wall, unchanged between stress and rest and partially due to to diaphragmatic attenuation. However, the sixth perfusion defect persists on the attenuation corrected dataset suggesting coexistence of infarction or scar. 3. Depressed ejection fraction of 28% with global hypokinesia and left ventricular cavity dilation. Assessment and Plan - Assessment (1) NSTEMI (non-ST elevated myocardial infarction) Code(s): I21.4 - Non-ST elevation (NSTEMI) myocardial infarction Status: Acute (2) New onset of congestive heart failure Code(s): I50.9 - Heart failure, unspecified Status: Acute (3) Hypertension Code(s): I10 - Essential (primary) hypertension Status: Acute (4) Diabetes Code(s): E11.9 - Type 2 diabetes mellitus without complications Status: Acute - Plan There are no new cardiac issues noted at this time. Stress test was done on 10/29/18 which showed a fixed perfusion defect in the apical and mid segments of the inferolateral wall, unchanged between stress and rest and partially due to diaphragmatic attenuation, suggesting coexistence of infarction or scar, EF 28%. Negative for ischemia. We will continue Entresto and Coreg for CHF treatment and monitor BMP's daily. Continue to monitor the patient on telemetry. We will continue to monitor the patient during her hospitalization. The patient was seen and evaluated by Dr. Schuster who participated in care, management and decision making. - Attending Attestation Patient seen and examined. I reviewed and agree with the evaluation and plan as presented. Echo with severe LV systolic dysfunction. Adenosine nuc ST with no evidence of ischemia. Continue Entresto and carvedilol. Monitor over the weekend. Increase activity.
--- NOTE | 2018-10-30 16:32 | P.PNIM ---
Subjective Interval history: With some sob, no LE edema. Says she feels very tired. No fever or chills. No cough. Patient says she had some chest pain with walking. Discussed with cardiology poss [facility] on Friday Physical Exam Vital signs: Vital Signs 10/29/18 17:00 10/29/18 17:16 10/29/18 18:22 Temperature 97.8 F Pulse Rate 103 H 109 H 105 H Respiratory Rate 18 Blood Pressure 124/74 Pulse Oximetry 97 10/29/18 19:00 10/29/18 19:54 10/29/18 20:00 Temperature 97.6 F Pulse Rate 97 H 96 H 107 H Respiratory Rate 18 Blood Pressure 147/77 H Pulse Oximetry 94 L 10/29/18 21:00 10/29/18 22:00 10/29/18 23:00 Temperature Pulse Rate 104 H 113 H 92 H Respiratory Rate Blood Pressure Pulse Oximetry 10/30/18 00:00 10/30/18 00:47 10/30/18 02:00 Temperature 97.8 F Pulse Rate 94 H 94 H 75 Respiratory Rate 18 Blood Pressure 135/81 Pulse Oximetry 94 L 10/30/18 03:00 10/30/18 04:00 10/30/18 05:00 Temperature 98.3 F Pulse Rate 88 80 77 Respiratory Rate 18 Blood Pressure 135/81 Pulse Oximetry 94 L 10/30/18 06:00 10/30/18 07:00 10/30/18 08:00 Temperature Pulse Rate 73 84 90 Respiratory Rate Blood Pressure Pulse Oximetry 10/30/18 08:57 10/30/18 09:00 10/30/18 10:00 Temperature 97.7 F Pulse Rate 76 90 90 Respiratory Rate 14 Blood Pressure 101/68 Pulse Oximetry 95 10/30/18 11:00 10/30/18 12:00 10/30/18 13:00 Temperature 97.3 F L Pulse Rate 84 82 84 Respiratory Rate 16 Blood Pressure 103/68 Pulse Oximetry 96 10/30/18 14:00 10/30/18 15:00 10/30/18 15:46 Temperature 97.0 F L Pulse Rate 88 78 83 Respiratory Rate 16 Blood Pressure 96/70 L Pulse Oximetry 95 10/30/18 16:00 Temperature Pulse Rate 85 Respiratory Rate Blood Pressure Pulse Oximetry Intake & Output 10/29/18 10/30/18 10/30/18 18:59 06:59 18:59 Intake Total 730 / 730 100 / 100 Output Total 650 / 650 Balance 80 / 80 100 / 100 Weight 92 kg Intake: IV 250 / 250 100 / 100 Heparin/D5W 25,000 U/250 mL 25, 250 / 250 100 / 100 000 unit In 250 ml @ Per Protocol IV.CONT TITRATE PRN Rx #:[id number] Oral 480 / 480 Output: Urine 650 / 650 Other: Date of Last Bowel Movement 10/29/18 10/29/18 10/29/18 Narrative: GENERAL: Pleasant 63 yo F, well-nourished patient in no acute distress CARDIOVASCULAR: Regular rate and rhythm without murmurs, gallops, or rubs. RESPIRATORY: Breath sounds equal bilaterally. No accessory muscle use. GASTROINTESTINAL: Abdomen soft, non-tender, nondistended. MUSCULOSKELETAL: No cyanosis, or edema. Results Labs CBC & Chem 7: 10/30/18 06:11 10/30/18 06:11 Assessment and Plan (1) NSTEMI (non-ST elevated myocardial infarction): Code(s): I21.4 - Non-ST elevation (NSTEMI) myocardial infarction Status: Acute (2) New onset of congestive heart failure: Code(s): I50.9 - Heart failure, unspecified Status: Acute (3) Hypertension: Code(s): I10 - Essential (primary) hypertension Status: Acute (4) Diabetes: Code(s): E11.9 - Type 2 diabetes mellitus without complications Status: Acute Plan 63-year-old female with a history of RA, asthma, hypertension and diabetes presented to the ED with complaints of cough and congestion with body aches for the last 2 weeks. NSTEMI, with atypical chest pain Troponin 0.19 on admission trending down -Heparin drip DCd per cardio,recs and start asa 81 mg daily -Consult to cardiology for evaluation, had adenosisne stress test per cardio recs Dr Schuster cardiology, discussed findings patient is without signs of ischemia. Systolic CHF , nonischemic with severely reduced EF of 20% Elevated BNP, no history of CHF BNP 335 on admission -2D echo reviewed and findings discussed with the patient, Dr Schuster cardio. Patient with severe reduced EF of 20% Hypertension, chronic -Resume home medications and monitor vitals Start entresto Start coreg' Start ASA Diabetes, chronic Accu-Cheks with sliding scale insulin Hold metformin for now RA, chronic -Resume home medications DVT prophylaxis: Heparin Discussed with the patient, nurse, Dr Schuster cardiology DC plan Discussed with cardiology plan to DC on Friday . 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
[2018-10-31] MEDS: Acetaminophen 325 MG Tablet PO PRN ×2 (06:37→21:23)
[2018-10-31 07:41] LABS: Mean Corpuscular HGB Conc 32.7 % (32.0-36.0); Mean Corpuscular Hemoglobin 30.6 pg (27.0-34.0); Mean Corpuscular Volume 93.4 fL (80.0-100.0); Mean Platelet Volume 8.2 fL (7.0-11.0); Platelet Count 256 th/mm3 (150-450); Red Blood Count 4.92 mil/mm3 (4.00-5.30); Red Cell Distribution Width 14.6 % (11.6-17.2); White Blood Count 5.4 th/mm3 (4.0-11.0)
[2018-10-31 08:07] LABS: Anion Gap 5 meq/L (5-15); Blood Urea Nitrogen 12 mg/dL (7-18); Calcium 8.5 mg/dL (8.5-10.1); Carbon Dioxide 26.6 meq/L (21.0-32.0); Chloride 112 meq/L (98-107); Glomerular Filtration Rate Greater Than 89 mL/min (>89); Glucose,Random 97 mg/dL (74-106); Potassium 4.2 meq/L (3.5-5.1); Sodium 144 meq/L (136-145)
[2018-10-31] MEDS: Insulin NovoLOG Aspart Correctional Sugar Inj SQ SCH ×4 (09:34→21:02)
[2018-10-31] MEDS: Gabapentin 300 MG Capsule PO SCH ×3 (09:35→19:18)
[2018-10-31] MEDS: Topiramate 25 MG Tablet PO SCH ×2 (09:35→21:21)
[2018-10-31] MEDS: Aspirin 325 MG Tablet PO SCH (09:35)
[2018-10-31] MEDS: Famotidine 20 MG Tablet PO PRN (09:43)
--- NOTE | 2018-10-31 13:46 | P.PNIM ---
Subjective Interval history: With son and feeling tired. Also BS noted into a lower side, will change diet to regular. No fever ro chills. Some nonproductive cough Says she takes venlafaxine 75v mg po daily will restart Physical Exam Vital signs: Vital Signs 10/30/18 14:00 10/30/18 15:00 10/30/18 15:46 Temperature 97.0 F L Pulse Rate 88 78 83 Respiratory Rate 16 Blood Pressure 96/70 L Pulse Oximetry 95 10/30/18 16:00 10/30/18 17:00 10/30/18 18:00 Temperature Pulse Rate 85 92 H 94 H Respiratory Rate Blood Pressure Pulse Oximetry 10/30/18 19:00 10/30/18 20:00 10/30/18 21:00 Temperature 99.0 F Pulse Rate 95 H 91 H 98 H Respiratory Rate 20 Blood Pressure 92/64 L Pulse Oximetry 94 L 10/30/18 22:00 10/30/18 23:00 10/30/18 23:33 Temperature Pulse Rate 104 H 108 H 108 H Respiratory Rate Blood Pressure Pulse Oximetry 10/31/18 00:00 10/31/18 01:00 10/31/18 02:00 Temperature 97.6 F Pulse Rate 77 72 80 Respiratory Rate 16 Blood Pressure 107/69 Pulse Oximetry 93 L 10/31/18 03:00 10/31/18 04:00 10/31/18 05:00 Temperature 98.1 F Pulse Rate 78 85 80 Respiratory Rate 16 Blood Pressure 97/70 L Pulse Oximetry 93 L 10/31/18 06:00 10/31/18 07:13 10/31/18 12:37 Temperature 98 F 97.2 F L Pulse Rate 75 96 H 86 Respiratory Rate 17 20 Blood Pressure 101/65 126/55 L Pulse Oximetry 94 L 98 Intake & Output 10/30/18 10/31/18 10/31/18 18:59 06:59 18:59 Intake Total 1450 / 1450 480 / 480 Output Total 1400 / 1400 750 / 750 Balance 50 / 50 -270 / -270 Weight 92 kg Intake: IV 100 / 100 Heparin/D5W 25,000 U/250 mL 25, 100 / 100 000 unit In 250 ml @ Per Protocol IV.CONT TITRATE PRN Rx #:[id number] Oral 1350 / 1350 480 / 480 Output: Urine 1400 / 1400 750 / 750 Other: Date of Last Bowel Movement 10/30/18 10/30/18 10/30/18 Narrative: GENERAL: Pleasant 63 yo F, well-nourished patient in no acute distress CARDIOVASCULAR: Regular rate and rhythm without murmurs, gallops, or rubs. RESPIRATORY: Breath sounds equal bilaterally. No accessory muscle use. GASTROINTESTINAL: Abdomen soft, non-tender, nondistended. MUSCULOSKELETAL: No cyanosis, or edema. Results Labs CBC & Chem 7: 10/31/18 06:43 10/31/18 06:43 Assessment and Plan (1) NSTEMI (non-ST elevated myocardial infarction): Code(s): I21.4 - Non-ST elevation (NSTEMI) myocardial infarction Status: Acute (2) New onset of congestive heart failure: Code(s): I50.9 - Heart failure, unspecified Status: Acute (3) Hypertension: Code(s): I10 - Essential (primary) hypertension Status: Acute (4) Diabetes: Code(s): E11.9 - Type 2 diabetes mellitus without complications Status: Acute Plan 63-year-old female with a history of RA, asthma, hypertension and diabetes presented to the ED with complaints of cough and congestion with body aches for the last 2 weeks. NSTEMI, with atypical chest pain Troponin 0.19 on admission trending down -Heparin drip DCd per cardio,recs and start asa 81 mg daily -Consult to cardiology for evaluation, had adenosisne stress test per cardio recs Dr Schuster cardiology, discussed findings patient is without signs of ischemia. Systolic CHF , nonischemic with severely reduced EF of 20% Elevated BNP, no history of CHF BNP 335 on admission -2D echo reviewed and findings discussed with the patient, Dr Schuster cardio. Patient with severe reduced EF of 20% Hypertension, chronic -Resume home medications and monitor vitals Start entresto Start coreg' Start ASA Diabetes, chronic Accu-Cheks with sliding scale insulin Hold metformin for now Patient noted with BS into a lower side, change diet to regular RA, chronic -Resume home medications Anxiety depression restart venlafaxine DVT prophylaxis: Heparin Discussed with the patient, nurse, Dr Schuster cardiology DC plan Discussed with cardiology plan to DC on Friday . monitor patient during the weekend Also patient needs PCP follow up and is requesting Case management to find a pcp and also to make appointment patient to have appointment with PCP at [place] Will monitor BP on meds as patient with a h.o hypotension and not able to tolerate BP meds Progress Note: Quality VTE Deep Vein Thrombosis/Pulmonary Embolism Present on Admission: No _ (1) Hypertension Qualifiers: Hypertension type: (2) Diabetes Qualifiers: Diabetes mellitus type: Diabetes mellitus chcf insulin use: Diabetes mellitus complication status: Diabetes mellitus complication detail: Diabetic retinopathy severity: Proliferative retinopathy type: Diabetes mellitus macular edema: Laterality: Chronic kidney disease stage:
[2018-10-31] MEDS: Venlafaxine XR 75 MG Capsule PO SCH (15:04)
[2018-11-01] MEDS: Insulin NovoLOG Aspart Correctional Sugar Inj SQ SCH ×4 (08:30→20:26)
[2018-11-01] MEDS: Venlafaxine XR 75 MG Capsule PO SCH (08:34)
[2018-11-01] MEDS: Topiramate 25 MG Tablet PO SCH ×2 (08:34→21:00)
[2018-11-01] MEDS: Gabapentin 300 MG Capsule PO SCH ×3 (08:35→16:59)
[2018-11-01] MEDS: Aspirin 325 MG Tablet PO SCH (08:35)
[2018-11-01 10:00] LABS: Anion Gap 7 meq/L (5-15); Blood Urea Nitrogen 13 mg/dL (7-18); Calcium 8.7 mg/dL (8.5-10.1); Carbon Dioxide 27.3 meq/L (21.0-32.0); Chloride 110 meq/L (98-107); Glomerular Filtration Rate Greater Than 89 mL/min (>89); Glucose,Random 92 mg/dL (74-106); Potassium 4.1 meq/L (3.5-5.1); Sodium 144 meq/L (136-145)
[2018-11-01] MEDS ORDERED: Sodium Chlor 0.9% Inj 250 ML IV.SIG ONE ×2 (11:00→12:00)
--- NOTE | 2018-11-01 11:52 | P.PNIM ---
Subjective Interval history: Patient was noted with low BP and coreg and entresto was held. Patient with brief nausea no vomiting,. No sweating. No fever or chills Still with sob. Physical Exam Vital signs: Vital Signs 10/31/18 12:00 10/31/18 12:37 10/31/18 13:00 Temperature 97.2 F L Pulse Rate 80 86 90 Respiratory Rate 20 Blood Pressure 126/55 L Pulse Oximetry 98 10/31/18 14:00 10/31/18 15:00 10/31/18 15:05 Temperature 97.5 F L Pulse Rate 82 83 80 Respiratory Rate 18 Blood Pressure 94/59 L Pulse Oximetry 95 10/31/18 16:00 10/31/18 17:00 10/31/18 18:00 Temperature Pulse Rate 80 98 H 92 H Respiratory Rate Blood Pressure Pulse Oximetry 10/31/18 19:00 10/31/18 20:00 10/31/18 21:00 Temperature 97.3 F L Pulse Rate 86 92 H 90 Respiratory Rate 16 Blood Pressure 100/70 Pulse Oximetry 95 10/31/18 21:20 10/31/18 22:00 10/31/18 23:00 Temperature Pulse Rate 90 85 Respiratory Rate Blood Pressure 119/84 Pulse Oximetry 10/31/18 23:34 11/01/18 00:00 11/01/18 01:00 Temperature Pulse Rate 82 74 76 Respiratory Rate 16 Blood Pressure 93/68 L Pulse Oximetry 94 L 11/01/18 02:00 11/01/18 03:00 11/01/18 04:00 Temperature Pulse Rate 76 78 76 Respiratory Rate 16 Blood Pressure 92/56 L Pulse Oximetry 94 L 11/01/18 05:00 11/01/18 06:00 11/01/18 07:00 Temperature Pulse Rate 74 80 77 Respiratory Rate Blood Pressure Pulse Oximetry 11/01/18 08:00 11/01/18 08:32 11/01/18 09:00 Temperature 98 F Pulse Rate 76 82 Respiratory Rate 16 Blood Pressure 91/62 L 85/52 L Pulse Oximetry 95 11/01/18 10:00 11/01/18 10:30 11/01/18 11:31 Temperature Pulse Rate 88 91 H Respiratory Rate 15 Blood Pressure 86/50 L 154/86 H Pulse Oximetry 95 Intake & Output 10/31/18 11/01/18 11/01/18 18:59 06:59 18:59 Intake Total 5468 / 5468 Output Total 2450 / 2450 Balance 3018 / 3018 Weight 91 kg Intake: Oral 5468 / 5468 Output: Urine 2450 / 2450 Other: Date of Last Bowel Movement 10/30/18 10/30/18 10/30/18 Narrative: GENERAL: Pleasant 63 yo F, well-nourished patient in no acute distress CARDIOVASCULAR: Regular rate and rhythm without murmurs, gallops, or rubs. RESPIRATORY: Breath sounds equal bilaterally. No accessory muscle use. GASTROINTESTINAL: Abdomen soft, non-tender, nondistended. MUSCULOSKELETAL: No cyanosis, or edema. Results Labs CBC & Chem 7: 10/31/18 06:43 11/01/18 07:18 Assessment and Plan (1) NSTEMI (non-ST elevated myocardial infarction): Code(s): I21.4 - Non-ST elevation (NSTEMI) myocardial infarction Status: Acute (2) New onset of congestive heart failure: Code(s): I50.9 - Heart failure, unspecified Status: Acute (3) Hypertension: Code(s): I10 - Essential (primary) hypertension Status: Acute (4) Diabetes: Code(s): E11.9 - Type 2 diabetes mellitus without complications Status: Acute Plan 63-year-old female with a history of RA, asthma, hypertension and diabetes presented to the ED with complaints of cough and congestion with body aches for the last 2 weeks. NSTEMI, with atypical chest pain Troponin 0.19 on admission trending down -Heparin drip DCd per cardio,recs and start asa 81 mg daily -Consult to cardiology for evaluation, had adenosisne stress test per cardio recs Dr Schuster cardiology, discussed findings patient is without signs of ischemia. Systolic CHF , nonischemic with severely reduced EF of 20% Elevated BNP, no history of CHF BNP 335 on admission -2D echo reviewed and findings discussed with the patient, Dr Schuster cardio. Patient with severe reduced EF of 20% Hypertension, chronic -Resume home medications and monitor vitals Started entresto and coreg however BP is too low and on hold, patient doesn't tolerate meds Continue ASA Hypotension hold coreg and entresto patient is not able to tolerate meds Diabetes, chronic Accu-Cheks with sliding scale insulin Hold metformin for now Patient noted with BS into a lower side, change diet to regular RA, chronic -Resume home medications Anxiety depression restart venlafaxine DVT prophylaxis: Heparin Discussed with the patient, nurse, Dr Schuster cardiology DC plan Discussed with cardiology plan to DC on Friday . monitor patient during the weekend Also patient needs PCP follow up and is requesting Case management to find a pcp and also to make appointment patient to have appointment with PCP at [place] Will continue to monitor BP while on meds as patient with a h.o hypotension and not able to tolerate BP meds. It seems the patient is not able to tolerate entresto and coreg, cardiology to decide further plan Progress Note: Quality VTE Deep Vein Thrombosis/Pulmonary Embolism Present on Admission: No _ (1) Diabetes Qualifiers: Chronic kidney disease stage: Diabetes mellitus complication detail: Diabetes mellitus complication status: Diabetes mellitus terminal make up operator insulin use : Diabetes mellitus macular edema: Diabetes mellitus type: Diabetic retinopathy severity: Laterality: Proliferative retinopathy type: (2) Hypertension Qualifiers: Hypertension type:
[2018-11-02] MEDS: Venlafaxine XR 75 MG Capsule PO SCH (08:46)
[2018-11-02] MEDS: Topiramate 25 MG Tablet PO SCH ×2 (08:47→21:12)
[2018-11-02] MEDS: Gabapentin 300 MG Capsule PO SCH ×3 (08:47→19:48)
[2018-11-02] MEDS: Aspirin 325 MG Tablet PO SCH (08:47)
[2018-11-02] MEDS: Insulin NovoLOG Aspart Correctional Sugar Inj SQ SCH ×4 (09:24→21:12)
[2018-11-02] MEDS: Acetaminophen 325 MG Tablet PO PRN (09:28)
[2018-11-02 10:27] LABS: Calcium 8.9 mg/dL (8.5-10.1); Carbon Dioxide 25.3 meq/L (21.0-32.0); Potassium 4.1 meq/L (3.5-5.1)
--- NOTE | 2018-11-02 15:01 | P.PNCA ---
Subjective Interval history: Patient denies any CP, pressure, palpitations, dizziness or edema. She does complain of mild SOB and fatigue with activity. Medications and Allergies Allergies Allergy/AdvReac Type Severity Reaction Status Date / Time aspirin Allergy Mild Itching Verified 10/28/18 16:04 lansoprazole Allergy Mild Itching Verified 10/28/18 16:04 omeprazole Allergy Mild Itching Verified 10/28/18 16:04 pantoprazole Allergy Mild Itching Verified 10/28/18 16:04 penicillin G Allergy Mild Itching Verified 10/28/18 16:04 Sulfa (Sulfonamide Allergy Mild Itching Verified 10/28/18 16:04 Antibiotics) Home Medications Medication Instructions Recorded Confirmed Type ergocalciferol (vitamin D2) 50,000 unit PO QWEEK 10/28/18 10/29/18 History [Vitamin D2] ezetimibe [Zetia] 10 mg PO DAILY 10/28/18 10/29/18 History folic acid 1 mg PO DAILY 10/28/18 10/29/18 History gabapentin 300 mg PO TID 10/28/18 10/29/18 History lidocaine [Lidocaine Pain Relief] 1 patch TOPICAL BID 10/28/18 10/29/18 History metformin 500 mg PO BID 10/28/18 10/29/18 History methotrexate (PF) 0.7 ml SUBCUT QWEEK 10/28/18 10/29/18 History prednisone 2.5 mg PO DAILY 10/28/18 10/29/18 History promethazine [Phenergan] 25 mg [place] DAILY PRN 10/28/18 10/29/18 History ranitidine HCl [Zantac 75] 75 mg PO BID PRN 10/28/18 10/29/18 History topiramate [Topamax] 25 mg PO BID 10/28/18 10/29/18 History tramadol 50 mg PO Q6H PRN 10/28/18 10/29/18 History Active Medications: Active Medications Acetaminophen (Tylenol) 650 mg PO Q4H PRN PRN Reason: Temp > 100.4 Last Admin: 11/02/18 09:28 Dose: 650 mg Albuterol (Albuterol Neb (Prn)) 2.5 mg NEB UNSCH PRN PRN Reason: SHORTNESS OF BREATH/WHEEZING Albuterol (Duoneb Neb (Prn)) 1 ampul NEB UNSCH PRN PRN Reason: SHORTNESS OF BREATH/WHEEZING Albuterol (Duoneb Neb (Prn)) 1 ampul NEB Q4HR NEB PRN PRN Reason: sob/wheezing Aspirin (Aspirin) 325 mg PO DAILY [facility] Last Admin: 11/02/18 08:47 Dose: 325 mg Benzonatate (Tessalon Perles) 100 mg PO Q8H PRN PRN Reason: COUGH Carvedilol (Coreg) 3.125 mg PO BID [facility] Last Admin: 11/02/18 10:35 Dose: 3.125 mg Dextrose (D50w Vial) 50 ml IV.PUSH UNSCH PRN PRN Reason: PER HYPOGLYCEMIA PROTOCOL Famotidine (Pepcid) 10 mg PO BID PRN PRN Reason: ACID REFLUX Last Admin: 10/31/18 09:43 Dose: 10 mg Gabapentin (Neurontin) 300 mg PO TID [facility] Last Admin: 11/02/18 13:56 Dose: Not Given Glucagon (Glucagon Inj) 1 mg OTHER PRN PRN PRN Reason: for Hypoglycemia Protocol Heparin Sodium (Porcine) (Heparin Inj) 2,500 units IV.PUSH UNSCH PRN PRN Reason: aPTT 25-39 Heparin Sodium (Porcine) (Heparin Inj) 5,000 units IV.PUSH UNSCH PRN PRN Reason: aPTT < 25 Insulin Aspart (Novolog Insulin Correctional Sugar Inj) 0 unit SQ ACHS [facility]; Protocol Last Admin: 11/02/18 13:56 Dose: Not Given Miscellaneous (Pill Splitter) 1 each OTHER UNSCH PRN PRN Reason: SEE LABEL COMMENTS Nitroglycerin (Nitrostat Sl) 0.4 mg SL Q5M PRN PRN Reason: CHEST PAIN Ondansetron HCl (Zofran Inj) 4 mg IV.PUSH Q6H PRN PRN Reason: NAUSEA OR VOMITING Last Admin: 11/02/18 09:28 Dose: 4 mg Sacubitril/Valsartan (Entresto 24 Mg/26 Mg Tablet) 1 tab PO BID [facility] Last Admin: 11/02/18 08:47 Dose: 1 tab Sodium Chloride (Ns Flush) 2 ml IV.FLUSH BID [facility] Last Admin: 11/02/18 08:48 Dose: 2 ml Sodium Chloride (Ns Flush) 2 ml IV.FLUSH PRN PRN PRN Reason: FLUSH AFTER USING IV ACCESS Last Admin: 11/01/18 15:07 Dose: 2 ml Topiramate (Topamax) 25 mg PO BID [facility] Last Admin: 11/02/18 08:47 Dose: 25 mg Tramadol HCl (Ultram) 50 mg PO Q6H PRN PRN Reason: Pain 1-10 Venlafaxine HCl (Effexor Xr) 75 mg PO DAILY [facility] Last Admin: 11/02/18 08:46 Dose: 75 mg Physical Exam Vital signs: Vital Signs 11/01/18 15:00 11/01/18 15:09 11/01/18 15:42 Temperature Pulse Rate 88 81 81 Respiratory Rate 17 20 Blood Pressure 145/68 H 99/68 L Pulse Oximetry 94 L 94 L 11/01/18 16:00 11/01/18 17:00 11/01/18 18:00 Temperature Pulse Rate 78 76 91 H Respiratory Rate Blood Pressure Pulse Oximetry 11/01/18 19:00 11/01/18 20:00 11/01/18 21:00 Temperature 98 F Pulse Rate 95 H 96 H 91 H Respiratory Rate 18 Blood Pressure 84/50 L Pulse Oximetry 93 L 11/01/18 22:00 11/01/18 23:00 11/02/18 00:00 Temperature 97.8 F Pulse Rate 87 88 75 Respiratory Rate 16 Blood Pressure 90/53 L Pulse Oximetry 96 11/02/18 01:00 11/02/18 02:00 11/02/18 03:00 Temperature Pulse Rate 77 75 75 Respiratory Rate Blood Pressure Pulse Oximetry 11/02/18 04:00 11/02/18 05:00 11/02/18 06:00 Temperature 98.2 F Pulse Rate 80 77 88 Respiratory Rate 17 Blood Pressure 97/53 L Pulse Oximetry 94 L 11/02/18 07:00 11/02/18 08:00 11/02/18 09:00 Temperature 97.6 F Pulse Rate 94 H 88 84 Respiratory Rate 18 Blood Pressure 92/54 L Pulse Oximetry 92 L 11/02/18 10:00 11/02/18 11:00 11/02/18 12:00 Temperature Pulse Rate 78 81 Respiratory Rate 18 Blood Pressure Pulse Oximetry Intake & Output 11/01/18 11/02/18 11/02/18 18:59 06:59 18:59 Intake Total 920 / 920 330 / 330 Output Total 1400 / 1400 400 / 400 Balance -480 / -480 -70 / -70 Weight 92.5 kg Intake: IV 250 / 250 NS Inj 250 ML @ Wide Open IV. 250 / 250 SIG ONCE ONE Rx#:[id number] Oral 670 / 670 330 / 330 Output: Urine 1400 / 1400 400 / 400 Other: Date of Last Bowel Movement 10/30/18 10/31/18 10/31/18 - Constitutional no acute distress - Routine HEENT Exam Head: Present: normocephalic Eye: Present: PERRL ENT: Present: mucous membranes moist - Routine Neck Exam Present: full ROM - Routine Respiratory Exam Present: crackles Comments: Fine crackles noted bilateral lower lobes. - Routine Cardiovascular Exam Present: S1, S2, murmur. Absent: gallop, rubs - Routine Abdominal Exam Present: normoactive bowel sounds - Routine Extremities Exam Present: edema, full ROM, pulses intact, normal capillary refill. Absent: cyanosis, clubbing Comments: trace edema lower extremities. - Routine Skin Exam Present: intact - Routine Neurological Exam Present: oriented X3 - Detailed Neurological Exam: Coma Scale Eye Opening: Spontaneous Verbal Response: Oriented Motor Response: Obey commands [place] Coma Scale Total: 15 Results 10/31/18 06:43 11/02/18 08:18 Comprehensive Metabolic Panel 11/01/18 11/02/18 Range/Units 07:18 08:18 Sodium 144 144 (136-145) meq/L Potassium 4.1 4.1 (3.5-5.1) meq/L Chloride 110 H 111 H (98-107) meq/L Carbon Dioxide 27.3 25.3 (21.0-32.0) meq/L BUN 13 14 (7-18) mg/dL Creatinine 0.78 0.85 (0.50-1.00) mg/dL Calcium 8.7 8.9 (8.5-10.1) mg/dL Intake and Output 11/01/18 11/02/18 11/02/18 22:59 06:59 14:59 Intake Total 670 / 670 330 / 330 Output Total 1400 / 1400 400 / 400 Balance -730 / -730 -70 / -70 Intake: Oral 670 / 670 330 / 330 Output: Urine 1400 / 1400 400 / 400 Other: Date of Last Bowel Movement 10/31/18 10/31/1819 Weight 92.5 kg Assessment and Plan - Assessment (1) NSTEMI (non-ST elevated myocardial infarction) Code(s): I21.4 - Non-ST elevation (NSTEMI) myocardial infarction Status: Acute (2) New onset of congestive heart failure Code(s): I50.9 - Heart failure, unspecified Status: Acute (3) Hypertension Code(s): I10 - Essential (primary) hypertension Status: Acute (4) Diabetes Code(s): E11.9 - Type 2 diabetes mellitus without complications Status: Acute - Plan The patient has low EF and NSVT; we will have a LifeVest placed. We will continue treatment for CHF with Entresto and Coreg. Hold Coreg if systolic BP is less than 80 mmHg. Continue to increase her activity as she tolerates it. Continue to monitor BMP daily. Continue to monitor her on telemetry. We will continue to monitor the patient during her hospitalization. We will follow up in our office in 1-2 weeks after discharge from hospital. We will reevaluate LV function with a 2D echo in 3 months, if no improvement we will consider the placement of AICD. The patient was seen and evaluated by Dr. Schuster who participated in care, management and decision making. - Attending Attestation Patient seen and examined. I reviewed and agree with the evaluation and plan as presented. Will place Life Vest. Continue tx for CHF. Increase activity. F/u in our office after discharge.
--- NOTE | 2018-11-02 15:13 | P.PNIM ---
Subjective Interval history: In bed, says she feels very tired. Shortness of breath and lightheadedness with movement. She was up in the chair. No chest pain. Some cough nonproductive. No nausea or vomiting today able to eat however not having much appetite. Physical Exam Vital signs: Vital Signs 11/01/18 15:09 11/01/18 15:42 11/01/18 16:00 Temperature Pulse Rate 81 81 78 Respiratory Rate 17 20 Blood Pressure 145/68 H 99/68 L Pulse Oximetry 94 L 94 L 11/01/18 17:00 11/01/18 18:00 11/01/18 19:00 Temperature Pulse Rate 76 91 H 95 H Respiratory Rate Blood Pressure Pulse Oximetry 11/01/18 20:00 11/01/18 21:00 11/01/18 22:00 Temperature 98 F Pulse Rate 96 H 91 H 87 Respiratory Rate 18 Blood Pressure 84/50 L Pulse Oximetry 93 L 11/01/18 23:00 11/02/18 00:00 11/02/18 01:00 Temperature 97.8 F Pulse Rate 88 75 77 Respiratory Rate 16 Blood Pressure 90/53 L Pulse Oximetry 96 11/02/18 02:00 11/02/18 03:00 11/02/18 04:00 Temperature 98.2 F Pulse Rate 75 75 80 Respiratory Rate 17 Blood Pressure 97/53 L Pulse Oximetry 94 L 11/02/18 05:00 11/02/18 06:00 11/02/18 07:00 Temperature Pulse Rate 77 88 94 H Respiratory Rate Blood Pressure Pulse Oximetry 11/02/18 08:00 11/02/18 09:00 11/02/18 10:00 Temperature 97.6 F Pulse Rate 88 84 78 Respiratory Rate 18 Blood Pressure 92/54 L Pulse Oximetry 92 L 11/02/18 11:00 11/02/18 12:00 Temperature Pulse Rate 81 Respiratory Rate 18 Blood Pressure Pulse Oximetry Intake & Output 11/01/18 11/02/18 11/02/18 18:59 06:59 18:59 Intake Total 920 / 920 330 / 330 Output Total 1400 / 1400 400 / 400 Balance -480 / -480 -70 / -70 Weight 92.5 kg Intake: IV 250 / 250 NS Inj 250 ML @ Wide Open IV. 250 / 250 SIG ONCE ONE Rx#:[id number] Oral 670 / 670 330 / 330 Output: Urine 1400 / 1400 400 / 400 Other: Date of Last Bowel Movement 10/30/18 10/31/18 10/31/18 Narrative: GENERAL: Pleasant 63 yo F, well-nourished patient in no acute distress CARDIOVASCULAR: Regular rate and rhythm without murmurs, gallops, or rubs. RESPIRATORY: Breath sounds equal bilaterally. No accessory muscle use. GASTROINTESTINAL: Abdomen soft, non-tender, nondistended. MUSCULOSKELETAL: No cyanosis. mild bilat LE edema. Results Labs CBC & Chem 7: 10/31/18 06:43 11/02/18 08:18 Assessment and Plan (1) NSTEMI (non-ST elevated myocardial infarction): Code(s): I21.4 - Non-ST elevation (NSTEMI) myocardial infarction Status: Acute (2) New onset of congestive heart failure: Code(s): I50.9 - Heart failure, unspecified Status: Acute (3) Hypertension: Code(s): I10 - Essential (primary) hypertension Status: Acute (4) Diabetes: Code(s): E11.9 - Type 2 diabetes mellitus without complications Status: Acute Plan 63-year-old female with a history of RA, asthma, hypertension and diabetes presented to the ED with complaints of cough and congestion with body aches for the last 2 weeks. NSTEMI, with atypical chest pain Troponin 0.19 on admission trending down -Heparin drip DCd per cardio,recs and start asa 81 mg daily -Consult to cardiology for evaluation, had adenosisne stress test per cardio recs Dr Schuster cardiology, discussed findings patient is without signs of ischemia. Acute Systolic CHF , nonischemic with severely reduced EF of 20% Elevated BNP, no history of CHF BNP 335 on admission -2D echo reviewed and findings discussed with the patient, Dr Schuster cardio. Patient with severe reduced EF of 20% Hypertension, chronic -Resume home medications and monitor vitals Started entresto and coreg however BP is too low and on hold, patient doesn't tolerate meds much lower dose of coreg , patient needs entresto and coreg at DC. Also Vtach discussed with Dr Schuster, patient needs life vest, ordered by cardiology , case management is consulted for DC plan Continue ASA Hypotension hold coreg and entresto patient is not able to tolerate meds Diabetes, chronic Accu-Cheks with sliding scale insulin Hold metformin for now Patient noted with BS into a lower side, change diet to regular RA, chronic -Resume home medications Anxiety depression restart venlafaxine DVT prophylaxis: Heparin Discussed with the patient, nurse, Dr Schuster cardiology DC plan Discussed with cardiology plan to DC on Friday . monitor patient during the weekend Also patient needs PCP follow up and is requesting Case management to find a pcp and also to make appointment patient to have appointment with PCP at DC Will continue to monitor BP while on meds as patient with a h.o hypotension and not able to tolerate BP meds. It seems the patient is not able to tolerate entresto and coreg. Decreased dose of coreg. Discussed with Dr Schuster cardiology, patient needs meds entresto and coreg at DC minimal dose. Patient also with beats of Vtach and needs life vest at DC ordered by cardiology. Case management is consulted for DC plan. Discussed with the patient at length she expressed understanding. Progress Note: Quality VTE Deep Vein Thrombosis/Pulmonary Embolism Present on Admission: No _ (1) Hypertension Qualifiers: Hypertension type: (2) Diabetes Qualifiers: Diabetes mellitus type: Diabetes mellitus retirement insulin use: Diabetes mellitus complication status: Diabetes mellitus complication detail: Diabetic retinopathy severity: Proliferative retinopathy type: Diabetes mellitus macular edema: Laterality: Chronic kidney disease stage:
[2018-11-03 06:41] LABS: Calcium 8.5 mg/dL (8.5-10.1); Carbon Dioxide 25.6 meq/L (21.0-32.0); Potassium 4.2 meq/L (3.5-5.1)
[2018-11-03] MEDS: Venlafaxine XR 75 MG Capsule PO SCH (08:20)
[2018-11-03] MEDS: Aspirin 325 MG Tablet PO SCH (08:20)
[2018-11-03] MEDS: Gabapentin 300 MG Capsule PO SCH ×3 (08:21→17:46)
[2018-11-03] MEDS: Topiramate 25 MG Tablet PO SCH ×2 (08:21→21:46)
[2018-11-03] MEDS: Insulin NovoLOG Aspart Correctional Sugar Inj SQ SCH ×4 (08:23→22:01)
--- NOTE | 2018-11-03 12:54 | P.PNCA ---
Subjective Interval history: Patient is resting in bed at this time. She denies any CP, pressure, edema or dizziness. She continues to complain of mild SOB with activity. Medications and Allergies Allergies Allergy/AdvReac Type Severity Reaction Status Date / Time aspirin Allergy Mild Itching Verified 10/28/18 16:04 lansoprazole Allergy Mild Itching Verified 10/28/18 16:04 omeprazole Allergy Mild Itching Verified 10/28/18 16:04 pantoprazole Allergy Mild Itching Verified 10/28/18 16:04 penicillin G Allergy Mild Itching Verified 10/28/18 16:04 Sulfa (Sulfonamide Allergy Mild Itching Verified 10/28/18 16:04 Antibiotics) Home Medications Medication Instructions Recorded Confirmed Type ergocalciferol (vitamin D2) 50,000 unit PO QWEEK 10/28/18 10/29/18 History [Vitamin D2] ezetimibe [Zetia] 10 mg PO DAILY 10/28/18 10/29/18 History folic acid 1 mg PO DAILY 10/28/18 10/29/18 History gabapentin 300 mg PO TID 10/28/18 10/29/18 History lidocaine [Lidocaine Pain Relief] 1 patch TOPICAL BID 10/28/18 10/29/18 History metformin 500 mg PO BID 10/28/18 10/29/18 History methotrexate (PF) 0.7 ml SUBCUT QWEEK 10/28/18 10/29/18 History prednisone 2.5 mg PO DAILY 10/28/18 10/29/18 History promethazine [Phenergan] 25 mg [place] DAILY PRN 10/28/18 10/29/18 History ranitidine HCl [Zantac 75] 75 mg PO BID PRN 10/28/18 10/29/18 History topiramate [Topamax] 25 mg PO BID 10/28/18 10/29/18 History tramadol 50 mg PO Q6H PRN 10/28/18 10/29/18 History Active Medications: Active Medications Acetaminophen (Tylenol) 650 mg PO Q4H PRN PRN Reason: Temp > 100.4 Last Admin: 11/02/18 09:28 Dose: 650 mg Albuterol (Albuterol Neb (Prn)) 2.5 mg NEB UNSCH PRN PRN Reason: SHORTNESS OF BREATH/WHEEZING Albuterol (Duoneb Neb (Prn)) 1 ampul NEB UNSCH PRN PRN Reason: SHORTNESS OF BREATH/WHEEZING Albuterol (Duoneb Neb (Prn)) 1 ampul NEB Q4HR NEB PRN PRN Reason: sob/wheezing Aspirin (Aspirin) 325 mg PO DAILY [facility] Last Admin: 11/03/18 08:20 Dose: 325 mg Benzonatate (Tessalon Perles) 100 mg PO Q8H PRN PRN Reason: COUGH Carvedilol (Coreg) 3.125 mg PO BID [facility] Last Admin: 11/03/18 08:21 Dose: 3.125 mg Dextrose (D50w Vial) 50 ml IV.PUSH UNSCH PRN PRN Reason: PER HYPOGLYCEMIA PROTOCOL Famotidine (Pepcid) 10 mg PO BID PRN PRN Reason: ACID REFLUX Last Admin: 10/31/18 09:43 Dose: 10 mg Gabapentin (Neurontin) 300 mg PO TID [facility] Last Admin: 11/03/18 12:39 Dose: Not Given Glucagon (Glucagon Inj) 1 mg OTHER PRN PRN PRN Reason: for Hypoglycemia Protocol Heparin Sodium (Porcine) (Heparin Inj) 2,500 units IV.PUSH UNSCH PRN PRN Reason: aPTT 25-39 Heparin Sodium (Porcine) (Heparin Inj) 5,000 units IV.PUSH UNSCH PRN PRN Reason: aPTT < 25 Insulin Aspart (Novolog Insulin Correctional Sugar Inj) 0 unit SQ [facility]; Protocol Last Admin: 11/03/18 12:38 Dose: Not Given Miscellaneous (Pill Splitter) 1 each OTHER UNSCH PRN PRN Reason: SEE LABEL COMMENTS Nitroglycerin (Nitrostat Sl) 0.4 mg SL Q5M PRN PRN Reason: CHEST PAIN Ondansetron HCl (Zofran Inj) 4 mg IV.PUSH Q6H PRN PRN Reason: NAUSEA OR VOMITING Last Admin: 11/03/18 11:01 Dose: 4 mg Sacubitril/Valsartan (Entresto 24 Mg/26 Mg Tablet) 1 tab PO BID [facility] Last Admin: 11/03/18 08:20 Dose: 1 tab Sodium Chloride (Ns Flush) 2 ml IV.FLUSH BID [facility] Last Admin: 11/03/18 08:21 Dose: 2 ml Sodium Chloride (Ns Flush) 2 ml IV.FLUSH PRN PRN PRN Reason: FLUSH AFTER USING IV ACCESS Last Admin: 11/01/18 15:07 Dose: 2 ml Topiramate (Topamax) 25 mg PO BID [facility] Last Admin: 11/03/18 08:21 Dose: 25 mg Tramadol HCl (Ultram) 50 mg PO Q6H PRN PRN Reason: Pain 1-10 Venlafaxine HCl (Effexor Xr) 75 mg PO DAILY [facility] Last Admin: 11/03/18 08:20 Dose: 75 mg Physical Exam Vital signs: Vital Signs 11/02/18 13:00 11/02/18 14:00 11/02/18 15:00 Temperature Pulse Rate 90 86 80 Respiratory Rate Blood Pressure Pulse Oximetry 11/02/18 16:00 11/02/18 17:00 11/02/18 18:00 Temperature 98.0 F Pulse Rate 93 H 86 88 Respiratory Rate 18 Blood Pressure 104/67 Pulse Oximetry 95 11/02/18 19:00 11/02/18 20:00 11/02/18 21:00 Temperature 98.3 F Pulse Rate 91 H 90 86 Respiratory Rate 17 Blood Pressure 87/57 L Pulse Oximetry 94 L 11/02/18 22:00 11/02/18 23:00 11/02/18 23:50 Temperature 98.6 F Pulse Rate 90 92 H 88 Respiratory Rate 16 Blood Pressure 93/70 L Pulse Oximetry 94 L 11/03/18 00:00 11/03/18 01:00 11/03/18 02:00 Temperature Pulse Rate 84 81 78 Respiratory Rate Blood Pressure Pulse Oximetry 11/03/18 03:00 11/03/18 03:41 11/03/18 04:00 Temperature 97.8 F Pulse Rate 77 82 77 Respiratory Rate 17 Blood Pressure 103/60 Pulse Oximetry 94 L 11/03/18 05:00 11/03/18 06:00 11/03/18 07:00 Temperature Pulse Rate 78 73 75 Respiratory Rate Blood Pressure Pulse Oximetry 11/03/18 08:00 11/03/18 09:00 11/03/18 10:00 Temperature 97.8 F Pulse Rate 70 85 79 Respiratory Rate 16 Blood Pressure 89/56 L Pulse Oximetry 97 11/03/18 11:00 11/03/18 12:00 Temperature 97.9 F Pulse Rate 86 86 Respiratory Rate 16 Blood Pressure 93/50 L Pulse Oximetry 94 L Intake & Output 11/02/18 11/03/18 11/03/18 18:59 06:59 18:59 Intake Total 900 / 900 240 / 240 Output Total 1000 / 1000 1100 / 1100 Balance -100 / -100 -860 / -860 Weight 91 kg Intake: Oral 900 / 900 240 / 240 Output: Urine 1000 / 1000 1100 / 1100 Other: Date of Last Bowel Movement 10/31/18 10/31/18 10/31/18 - Constitutional no acute distress - Routine HEENT Exam Head: Present: normocephalic Eye: Present: PERRL ENT: Present: mucous membranes moist - Routine Neck Exam Present: full ROM - Routine Respiratory Exam Present: CTA bilaterally - Routine Cardiovascular Exam Present: S1, S2. Absent: murmur, gallop, rubs - Routine Abdominal Exam Present: normoactive bowel sounds - Routine Extremities Exam Present: full ROM, pulses intact, normal capillary refill. Absent: cyanosis, clubbing, edema - Routine Skin Exam Present: intact - Routine Neurological Exam Present: oriented X3 - Detailed Neurological Exam: Coma Scale Eye Opening: Spontaneous Verbal Response: Oriented Motor Response: Obey commands [place] Coma Scale Total: 15 - Routine Psychiatric Exam Present: normal affect Results 10/31/18 06:43 11/03/18 05:38 Comprehensive Metabolic Panel 11/02/18 11/03/18 Range/Units 08:18 05:38 Sodium 144 142 (136-145) meq/L Potassium 4.1 4.2 (3.5-5.1) meq/L Chloride 111 H 110 H (98-107) meq/L Carbon Dioxide 25.3 25.6 (21.0-32.0) meq/L BUN 14 14 (7-18) mg/dL Creatinine 0.85 0.80 (0.50-1.00) mg/dL Calcium 8.9 8.5 (8.5-10.1) mg/dL Intake and Output 11/02/18 11/03/18 11/03/18 22:59 06:59 14:59 Intake Total 900 / 900 240 / 240 Output Total 1000 / 1000 1100 / 1100 Balance -100 / -100 -860 / -860 Intake: Oral 900 / 900 240 / 240 Output: Urine 1000 / 1000 1100 / 1100 Other: Date of Last Bowel Movement 10/31/18 10/31/1810/31/19 Weight 91 kg Assessment and Plan - Assessment (1) NSTEMI (non-ST elevated myocardial infarction) Code(s): I21.4 - Non-ST elevation (NSTEMI) myocardial infarction Status: Acute (2) New onset of congestive heart failure Code(s): I50.9 - Heart failure, unspecified Status: Acute (3) Hypertension Code(s): I10 - Essential (primary) hypertension Status: Acute (4) Diabetes Code(s): E11.9 - Type 2 diabetes mellitus without complications Status: Acute - Plan There are no new cardiac issues noted at this time. We will continue Entresto and Coreg for CHF treatment. Awaiting LifeVest placement. Once LifeVest has been placed, she can be discharged home from a cardiology standpoint. Discussed treatment plan with her and she verbalized understanding. We will follow up in our office in 1-2 weeks after discharge from hospital. We will reevaluate LV function with a 2D echo in 3 months, if no improvement we will consider the placement of AICD. The patient was seen and evaluated by Dr. Schuster who participated in care, management and decision making. - Attending Attestation Patient seen and examined. I reviewed and agree with the evaluation and plan as presented. Continue tx for CHF. Place Life Vest. Will schedule outpatient f/u.
--- NOTE | 2018-11-03 14:02 | P.PNIM ---
Subjective Interval history: Patient says she is feeling right. Denies any chest pain or shortness of breath. She does report using Kathy D at home. I have advised her against this and to avoid any stimulants whatsoever. Physical Exam Vital signs: Vital Signs 11/02/18 14:00 11/02/18 15:00 11/02/18 16:00 Temperature 98.0 F Pulse Rate 86 80 93 H Respiratory Rate 18 Blood Pressure 104/67 Pulse Oximetry 95 11/02/18 17:00 11/02/18 18:00 11/02/18 19:00 Temperature Pulse Rate 86 88 91 H Respiratory Rate Blood Pressure Pulse Oximetry 11/02/18 20:00 11/02/18 21:00 11/02/18 22:00 Temperature 98.3 F Pulse Rate 90 86 90 Respiratory Rate 17 Blood Pressure 87/57 L Pulse Oximetry 94 L 11/02/18 23:00 11/02/18 23:50 11/03/18 00:00 Temperature 98.6 F Pulse Rate 92 H 88 84 Respiratory Rate 16 Blood Pressure 93/70 L Pulse Oximetry 94 L 11/03/18 01:00 11/03/18 02:00 11/03/18 03:00 Temperature Pulse Rate 81 78 77 Respiratory Rate Blood Pressure Pulse Oximetry 11/03/18 03:41 11/03/18 04:00 11/03/18 05:00 Temperature 97.8 F Pulse Rate 82 77 78 Respiratory Rate 17 Blood Pressure 103/60 Pulse Oximetry 94 L 11/03/18 06:00 11/03/18 07:00 11/03/18 08:00 Temperature 97.8 F Pulse Rate 73 75 70 Respiratory Rate 16 Blood Pressure 89/56 L Pulse Oximetry 97 11/03/18 09:00 11/03/18 10:00 11/03/18 11:00 Temperature Pulse Rate 85 79 86 Respiratory Rate Blood Pressure Pulse Oximetry 11/03/18 12:00 11/03/18 13:00 Temperature 97.9 F Pulse Rate 86 78 Respiratory Rate 16 Blood Pressure 93/50 L Pulse Oximetry 94 L Intake & Output 11/02/18 11/03/18 11/03/18 18:59 06:59 18:59 Intake Total 900 / 900 240 / 240 Output Total 1000 / 1000 1100 / 1100 Balance -100 / -100 -860 / -860 Weight 91 kg Intake: Oral 900 / 900 240 / 240 Output: Urine 1000 / 1000 1100 / 1100 Other: Date of Last Bowel Movement 10/31/18 10/31/18 10/31/18 Narrative: GENERAL: Patient sitting up in bed. Appears comfortable. Alert and oriented x3. SKIN: Warm and dry. HEAD: Normocephalic. EYES: No scleral icterus. No injection or drainage. NECK: Supple, trachea midline. No JVD. CARDIOVASCULAR: Regular rate and rhythm without murmurs, gallops, or rubs. RESPIRATORY: Breath sounds equal bilaterally. No accessory muscle use. GASTROINTESTINAL: Abdomen soft, non-tender, nondistended. MUSCULOSKELETAL: No cyanosis, trace peripheral edema. BACK: Nontender without obvious deformity. No CVA tenderness. Results Labs CBC & Chem 7: 10/31/18 06:43 11/03/18 05:38 Assessment and Plan (1) NSTEMI (non-ST elevated myocardial infarction): Code(s): I21.4 - Non-ST elevation (NSTEMI) myocardial infarction Status: Acute (2) New onset of congestive heart failure: Code(s): I50.9 - Heart failure, unspecified Status: Acute (3) Hypertension: Code(s): I10 - Essential (primary) hypertension Status: Acute (4) Diabetes: Code(s): E11.9 - Type 2 diabetes mellitus without complications Status: Acute Plan 63-year-old female with a history of RA, asthma, hypertension and diabetes presented to the ED with complaints of cough and congestion with body aches for the last 2 weeks. //NSTEMI, with atypical chest pain //Nonischemic cardiomyopathy Troponin 0.19 on admission trending down -Heparin drip DCd per cardio,recs and start asa 81 mg daily -Consult to cardiology for evaluation, had adenosisne stress test per cardio recs Dr Schuster cardiology, discussed findings patient is without signs of ischemia. = 11/03. Awaiting LifeVest. //Acute Systolic CHF , nonischemic with severely reduced EF of 20% Elevated BNP, no history of CHF BNP 335 on admission -2D echo reviewed and findings discussed with the patient, Dr Schuster cardio. Patient with severe reduced EF of 20% Hypertension, chronic -Resume home medications and monitor vitals Started entresto and coreg however BP is too low and on hold, patient doesn't tolerate meds much lower dose of coreg , patient needs entresto and coreg at DC. Also Vtach discussed with Dr Schuster, patient needs life vest, ordered by cardiology , case management is consulted for DC plan Continue ASA = Awaiting LifeVest. //Hypotension hold coreg and entresto patient is not able to tolerate meds //Diabetes, chronic Accu-Cheks with sliding scale insulin Hold metformin for now Patient noted with BS into a lower side, change diet to regular //RA, chronic -Resume home medications //Anxiety depression continue venlafaxine DVT prophylaxis: Heparin Discussed with the patient, nurse, Dr Schuster cardiology DC plan Discussed with cardiology plan to DC on Friday . monitor patient during the weekend Also patient needs PCP follow up and is requesting Case management to find a pcp and also to make appointment patient to have appointment with PCP at DC Will continue to monitor BP while on meds as patient with a h.o hypotension and not able to tolerate BP meds. It seems the patient is not able to tolerate entresto and coreg. Decreased dose of coreg. Discussed with Dr Schuster cardiology, patient needs meds entresto and coreg at DC minimal dose. Patient also with beats of Vtach and needs life vest at DC ordered by cardiology. Case management is consulted for DC plan. Discussed with the patient at length she expressed understanding. = 11/03. Awaiting LifeVest placement Progress Note: Quality VTE Deep Vein Thrombosis/Pulmonary Embolism Present on Admission: No _ (1) Hypertension Qualifiers: Hypertension type: (2) Diabetes Qualifiers: Diabetes mellitus type: Diabetes mellitus penitentiary insulin use: Diabetes mellitus complication status: Diabetes mellitus complication detail: Diabetic retinopathy severity: Proliferative retinopathy type: Diabetes mellitus macular edema: Laterality: Chronic kidney disease stage:
[2018-11-03] MEDS: Acetaminophen 325 MG Tablet PO PRN (18:39)
[2018-11-04 03:43] VITALS: O2SAT 94
[2018-11-04] MEDS: Insulin NovoLOG Aspart Correctional Sugar Inj SQ SCH ×2 (07:49→11:10)
[2018-11-04] MEDS: Gabapentin 300 MG Capsule PO SCH (08:11)
[2018-11-04] MEDS: Aspirin 325 MG Tablet PO SCH (08:11)
[2018-11-04] MEDS: Venlafaxine XR 75 MG Capsule PO SCH (08:11)
[2018-11-04] MEDS: Topiramate 25 MG Tablet PO SCH (08:11)
[2018-11-04] MEDS: Famotidine 20 MG Tablet PO PRN (08:16)
--- NOTE | 2018-11-04 09:07 | P.PNIM ---
Subjective Interval history: Patient says she is feeling well. Feels like going home. Denies any chest pain or shortness of breath. Physical Exam Vital signs: Vital Signs 11/03/18 10:00 11/03/18 11:00 11/03/18 12:00 Temperature 97.9 F Pulse Rate 79 86 86 Respiratory Rate 16 Blood Pressure 93/50 L Pulse Oximetry 94 L 11/03/18 13:00 11/03/18 14:00 11/03/18 15:00 Temperature Pulse Rate 78 85 78 Respiratory Rate Blood Pressure Pulse Oximetry 11/03/18 16:00 11/03/18 17:00 11/03/18 18:00 Temperature 98.0 F Pulse Rate 78 77 87 Respiratory Rate 18 Blood Pressure 96/51 L Pulse Oximetry 93 L 11/03/18 19:00 11/03/18 20:00 11/03/18 21:00 Temperature 98.3 F Pulse Rate 90 82 82 Respiratory Rate 17 Blood Pressure 82/36 L Pulse Oximetry 95 11/03/18 21:30 11/03/18 22:00 11/03/18 23:00 Temperature Pulse Rate 84 74 Respiratory Rate Blood Pressure 85/54 L Pulse Oximetry 11/04/18 00:00 11/04/18 01:00 11/04/18 02:00 Temperature 97.8 F Pulse Rate 75 77 81 Respiratory Rate 16 Blood Pressure 89/60 L Pulse Oximetry 96 11/04/18 03:00 11/04/18 03:43 11/04/18 04:00 Temperature 98.2 F Pulse Rate 75 88 76 Respiratory Rate 19 Blood Pressure 90/57 L Pulse Oximetry 94 L 11/04/18 05:00 11/04/18 06:00 Temperature Pulse Rate 75 83 Respiratory Rate Blood Pressure Pulse Oximetry Intake & Output 11/03/18 11/04/18 11/04/18 18:59 06:59 18:59 Intake Total 480 / 480 240 / 240 Output Total 1000 / 1000 Balance -520 / -520 240 / 240 Weight 92.5 kg Intake: Oral 480 / 480 240 / 240 Output: Urine 1000 / 1000 Other: # Voids 2 Date of Last Bowel Movement 10/31/18 10/31/18 Narrative: GENERAL: Patient sitting up in bed. Appears comfortable. Alert and oriented x3. Patient with LifeVest on. SKIN: Warm and dry. HEAD: Normocephalic. EYES: No scleral icterus. No injection or drainage. NECK: Supple, trachea midline. No JVD. CARDIOVASCULAR: Regular rate and rhythm without murmurs, gallops, or rubs. RESPIRATORY: Breath sounds equal bilaterally. No accessory muscle use. GASTROINTESTINAL: Abdomen soft, non-tender, nondistended. MUSCULOSKELETAL: No cyanosis, trace peripheral edema. BACK: Nontender without obvious deformity. No CVA tenderness. Results Labs CBC & Chem 7: 10/31/18 06:43 11/03/18 05:38 Assessment and Plan (1) NSTEMI (non-ST elevated myocardial infarction): Code(s): I21.4 - Non-ST elevation (NSTEMI) myocardial infarction Status: Acute (2) New onset of congestive heart failure: Code(s): I50.9 - Heart failure, unspecified Status: Acute (3) Hypertension: Code(s): I10 - Essential (primary) hypertension Status: Acute (4) Diabetes: Code(s): E11.9 - Type 2 diabetes mellitus without complications Status: Acute Plan 63-year-old female with a history of RA, asthma, hypertension and diabetes presented to the ED with complaints of cough and congestion with body aches for the last 2 weeks. //NSTEMI, with atypical chest pain //Nonischemic cardiomyopathy Troponin 0.19 on admission trending down -Heparin drip DCd per cardio,recs and start asa 81 mg daily -Consult to cardiology for evaluation, had adenosisne stress test per cardio recs Dr Schuster cardiology, discussed findings patient is without signs of ischemia. = 11/03. Awaiting LifeVest. = 11/04. LifeVest has been provided. Discharge home and follow-up with cardiology. //Acute Systolic CHF , nonischemic with severely reduced EF of 20% Elevated BNP, no history of CHF BNP 335 on admission -2D echo reviewed and findings discussed with the patient, Dr Schuster cardio. Patient with severe reduced EF of 20% Hypertension, chronic -Resume home medications and monitor vitals Started entresto and coreg however BP is too low and on hold, patient doesn't tolerate meds much lower dose of coreg , patient needs entresto and coreg at DC. Also Vtach discussed with Dr Schuster, patient needs life vest, ordered by cardiology , case management is consulted for DC plan Continue ASA -Discharge with Entresto and Coreg //Hypotension -Patient tolerating Coreg and Entresto. Continue. //Diabetes, chronic Accu-Cheks with sliding scale insulin Hold metformin for now Patient noted with BS into a lower side, change diet to regular = Discharge home. Continue low-dose metformin. //RA, chronic -Resume home medications //Anxiety depression continue venlafaxine DVT prophylaxis: Heparin Discussed with the patient, nurse, Dr Schuster cardiology DC plan Discussed with cardiology plan to DC on Friday . monitor patient during the weekend Also patient needs PCP follow up and is requesting Case management to find a pcp and also to make appointment patient to have appointment with PCP at DC Will continue to monitor BP while on meds as patient with a h.o hypotension and not able to tolerate BP meds. It seems the patient is not able to tolerate entresto and coreg. Decreased dose of coreg. Discussed with Dr Schuster cardiology, patient needs meds entresto and coreg at DC minimal dose. Patient also with beats of Vtach and needs life vest at DC ordered by cardiology. Case management is consulted for DC plan. Discussed with the patient at length she expressed understanding. = 11/04 LifeVest applied. Discharge home and follow-up cardiology. Progress Note: Quality VTE Deep Vein Thrombosis/Pulmonary Embolism Present on Admission: No _ (1) Hypertension Qualifiers: Hypertension type: (2) Diabetes Qualifiers: Diabetes mellitus type: Diabetes mellitus retirement insulin use: Diabetes mellitus complication status: Diabetes mellitus complication detail: Diabetic retinopathy severity: Proliferative retinopathy type: Diabetes mellitus macular edema: Laterality: Chronic kidney disease stage:
--- NOTE | 2018-11-04 09:09 | P.DS ---
DS: Providers Date of admission: 10/28/18 21:10 Primary care physician: Arthur Tran Consults: 10/28/18 22:25 Consult to Cardiology Routine Consulting Provider: Ovidio Schuster Does the patient have a General Contractor who follows them?: No Preferred Cyber Analyst:: [employer] Operator Physician Reason for Consultation: NSTEMI Notified:: Service Spoke with:: CATHERINE Date Notified:: 10/28/18 Time Notified:: 22:59 Ordering Provider: NAHUM 10/29/18 09:20 Consult to Cardiology Routine Consulting Provider: Ovidio Schuster Does the patient have a General Contractor who follows them?: Yes Preferred Cyber Analyst:: [facility] Reason for Consultation: DR LORIN HONG IN [place] Notified:: Office Spoke with:: Kari Date Notified:: 10/29/18 Time Notified:: 09:33 Comments:: Santi Ocampo ( community engagement specialist ) [facility] called and said they would not see patient, has not been one of theirs since 2016 - I called Dr Rutherford office and made them aware and placed patient back on Dr Rutherford list - Ordering Provider: SHAHRZAD 10/29/18 13:52 HUB Only Consult Order Routine Consulting Provider: [facility],Insurance Brief History from admission: 63-year-old female with a history of RA, asthma, hypertension and diabetes presented to the ED with complaints of cough and congestion with body aches for the last 2 weeks. Patient states she was seen at an urgent care approximately 1 week ago in which they stated to continue on taking [id number] medications. She states she went through multiple different products and still with no relief. She came into the [place] ER because she was not getting better. She does complain of slight chest pain more so in her left upper extremity, dull in nature, with associated nausea and vomiting. She states the over the counter medications are not helping. She states she has been having intermittent fevers, chills, dysuria and shortness of breath with cough. DS: Diagnosis Discharge Diagnosis (1) NSTEMI (non-ST elevated myocardial infarction): Status: Acute (2) New onset of congestive heart failure: Status: Acute (3) Hypertension: Status: Acute (4) Diabetes: Status: Acute DS: Summary 63-year-old female with a history of RA, asthma, hypertension and diabetes presented to the ED with complaints of cough and congestion with body aches for the last 2 weeks. //NSTEMI, with atypical chest pain //Nonischemic cardiomyopathy Troponin 0.19 on admission trending down -Heparin drip DCd per cardio,recs and start asa 81 mg daily -Consult to cardiology for evaluation, had adenosisne stress test per cardio recs Dr Schuster cardiology, discussed findings patient is without signs of ischemia. = 11/03. Awaiting LifeVest. = 11/04. LifeVest has been provided. Discharge home and follow-up with cardiology. //Acute Systolic CHF , nonischemic with severely reduced EF of 20% Elevated BNP, no history of CHF BNP 335 on admission -2D echo reviewed and findings discussed with the patient, Dr Schuster cardio. Patient with severe reduced EF of 20% Hypertension, chronic -Resume home medications and monitor vitals Started entresto and coreg however BP is too low and on hold, patient doesn't tolerate meds much lower dose of coreg , patient needs entresto and coreg at DC. Also Vtach discussed with Dr Schuster, patient needs life vest, ordered by cardiology , case management is consulted for DC plan Continue ASA -Discharge with Entresto and Coreg //Hypotension -Patient tolerating Coreg and Entresto. Continue. //Diabetes, chronic Accu-Cheks with sliding scale insulin Hold metformin for now Patient noted with BS into a lower side, change diet to regular = Discharge home. Continue low-dose metformin. //RA, chronic -Resume home medications //Anxiety depression continue venlafaxine DVT prophylaxis: Heparin Discussed with the patient, nurse, Dr Schuster cardiology DC plan Discussed with cardiology plan to DC on Friday . monitor patient during the weekend Also patient needs PCP follow up and is requesting Case management to find a pcp and also to make appointment patient to have appointment with PCP at DC Will continue to monitor BP while on meds as patient with a h.o hypotension and not able to tolerate BP meds. It seems the patient is not able to tolerate entresto and coreg. Decreased dose of coreg. Discussed with Dr Schuster cardiology, patient needs meds entresto and coreg at DC minimal dose. Patient also with beats of Vtach and needs life vest at DC ordered by cardiology. Case management is consulted for DC plan. Discussed with the patient at length she expressed understanding. = 11/04 LifeVest applied. Discharge home and follow-up cardiology. Time Spent with Patient Total time spent providing and/or coordinating discharge services: Greater than 30 minutes Quality: VTE Deep Vein Thrombosis/Pulmonary Embolism Present on Admission: No Results Labs on day of discharge: Labs from last 24 hours 11/04/18 11/03/18 11/03/18 07:48 21:57 11:50 POC Glucose 95 104 89 Impressions ITS Impressions Myocardial Perfusion Scan Nuc Med 10/29/18 00:00 CONCLUSION: 1. No evidence of stress-induced ischemia. 2. There is a fixed perfusion defect in the apical and mid segments of the inferolateral wall, unchanged between stress and rest and partially due to to diaphragmatic attenuation. However, the sixth perfusion defect persists on the attenuation corrected dataset suggesting coexistence of infarction or scar. 3. Depressed ejection fraction of 28% with global hypokinesia and left ventricular cavity dilation. Discharge Plan Discharge Disposition Patient Disposition: Discharge Home Discharge Condition Condition: Good Discharge Order Discharge Orders: Discharge Order (Routine); Ordered 11/04/18 Ordered By: Joshua Cunha Discharge Details Anticipated Discharge Date: 11/04/18 Physicians Team Primary Care Provider: Arthur Tran Attending Provider: Joshua Cunha Other Providers: Ovidio Schuster ; [facility],Insurance Rxs /Orders / Referrals /Forms Prescriptions: New venlafaxine [Effexor XR] 75 mg Capsule,Extended Release 24hr 75 mg PO DAILY 30 Days Qty: 30 RF: 0 aspirin 325 mg Tablet 325 mg PO DAILY 30 Days Qty: 30 RF: 0 carvedilol [Coreg] 3.125 mg Tablet 3.125 mg PO BID 30 Days Qty: 60 RF: 0 sacubitril-valsartan [Entresto] 24-26 mg Tablet 1 tab PO BID 30 Days Qty: 60 RF: 0 Continue metformin 500 mg Tablet 500 mg PO BID RF: 0 lidocaine [Lidocaine Pain Relief] 4 % Adhesive Patch,Medicated 1 patch TOPICAL BID RF: 0 promethazine [Phenergan] 25 mg Suppository 25 mg [place] DAILY PRN (Reason: Nausea) RF: 0 tramadol 50 mg Tablet 50 mg PO Q6H PRN (Reason: Pain) RF: 0 topiramate [Topamax] 25 mg Capsule, Sprinkle 25 mg PO BID RF: 0 ranitidine HCl [Zantac 75] 75 mg Tablet 75 mg PO BID PRN (Reason: Acid Reflux) RF: 0 prednisone 2.5 mg Tablet 2.5 mg PO DAILY RF: 0 gabapentin 300 mg Capsule 300 mg PO TID RF: 0 folic acid 1 mg Tablet 1 mg PO DAILY RF: 0 ergocalciferol (vitamin D2) [Vitamin D2] 50,000 unit Capsule 50,000 unit PO QWEEK RF: 0 ezetimibe [Zetia] 10 mg Tablet 10 mg PO DAILY RF: 0 methotrexate (PF) 30 mg/0.6 mL Auto-Injector 0.7 ml SUBCUT QWEEK RF: 0 Referrals: [facility],Insurance [Agency] - See Instructions Ovidio Schuster MD [Physician] - See Instructions Arthur Tran MD [Primary Care Provider] - See Instructions Stand Alone Forms: Work Release/Restrictions Discharge Instructions Patient Printed Instructions: Heart Failure (DC), Wearable Cardioverter Defibrillator (DC) Status ED Status: Admitted Patient
[2018-11-04 09:40] VITALS: BP 97/60; RESP 16; TEMP 97.8
--- NOTE | 2018-11-04 10:30 | P.PNCA ---
Subjective Interval history: Patient is resting in bed. She denies any CP, pressure, palpitations, dizziness or edema. She does complain of mild SOB with activity. Medications and Allergies Allergies Allergy/AdvReac Type Severity Reaction Status Date / Time aspirin Allergy Mild Itching Verified 10/28/18 16:04 lansoprazole Allergy Mild Itching Verified 10/28/18 16:04 omeprazole Allergy Mild Itching Verified 10/28/18 16:04 pantoprazole Allergy Mild Itching Verified 10/28/18 16:04 penicillin G Allergy Mild Itching Verified 10/28/18 16:04 Sulfa (Sulfonamide Allergy Mild Itching Verified 10/28/18 16:04 Antibiotics) Home Medications Medication Instructions Recorded Confirmed Type ergocalciferol (vitamin D2) 50,000 unit PO QWEEK 10/28/18 10/29/18 History [Vitamin D2] ezetimibe [Zetia] 10 mg PO DAILY 10/28/18 10/29/18 History folic acid 1 mg PO DAILY 10/28/18 10/29/18 History gabapentin 300 mg PO TID 10/28/18 10/29/18 History lidocaine [Lidocaine Pain Relief] 1 patch TOPICAL BID 10/28/18 10/29/18 History metformin 500 mg PO BID 10/28/18 10/29/18 History methotrexate (PF) 0.7 ml SUBCUT QWEEK 10/28/18 10/29/18 History prednisone 2.5 mg PO DAILY 10/28/18 10/29/18 History promethazine [Phenergan] 25 mg OR DAILY PRN 10/28/18 10/29/18 History ranitidine HCl [Zantac 75] 75 mg PO BID PRN 10/28/18 10/29/18 History topiramate [Topamax] 25 mg PO BID 10/28/18 10/29/18 History tramadol 50 mg PO Q6H PRN 10/28/18 10/29/18 History Active Medications: Active Medications Acetaminophen (Tylenol) 650 mg PO Q4H PRN PRN Reason: Temp > 100.4 Last Admin: 11/03/18 18:39 Dose: 650 mg Albuterol (Albuterol Neb (Prn)) 2.5 mg NEB UNSCH PRN PRN Reason: SHORTNESS OF BREATH/WHEEZING Albuterol (Duoneb Neb (Prn)) 1 ampul NEB UNSCH PRN PRN Reason: SHORTNESS OF BREATH/WHEEZING Albuterol (Duoneb Neb (Prn)) 1 ampul NEB Q4HR NEB PRN PRN Reason: sob/wheezing Aspirin (Aspirin) 325 mg PO DAILY [facility] Last Admin: 11/04/18 08:11 Dose: 325 mg Benzonatate (Tessalon Perles) 100 mg PO Q8H PRN PRN Reason: COUGH Carvedilol (Coreg) 3.125 mg PO BID [facility] Last Admin: 11/04/18 08:11 Dose: 3.125 mg Dextrose (D50w Vial) 50 ml IV.PUSH UNSCH PRN PRN Reason: PER HYPOGLYCEMIA PROTOCOL Famotidine (Pepcid) 10 mg PO BID PRN PRN Reason: ACID REFLUX Last Admin: 11/04/18 08:16 Dose: 10 mg Gabapentin (Neurontin) 300 mg PO TID [facility] Last Admin: 11/04/18 08:11 Dose: Not Given Glucagon (Glucagon Inj) 1 mg OTHER PRN PRN PRN Reason: for Hypoglycemia Protocol Heparin Sodium (Porcine) (Heparin Inj) 2,500 units IV.PUSH UNSCH PRN PRN Reason: aPTT 25-39 Heparin Sodium (Porcine) (Heparin Inj) 5,000 units IV.PUSH UNSCH PRN PRN Reason: aPTT < 25 Insulin Aspart (Novolog Insulin Correctional Sugar Inj) 0 unit SQ [facility]; Protocol Last Admin: 11/04/18 07:49 Dose: Not Given Miscellaneous (Pill Splitter) 1 each OTHER UNSCH PRN PRN Reason: SEE LABEL COMMENTS Nitroglycerin (Nitrostat Sl) 0.4 mg SL Q5M PRN PRN Reason: CHEST PAIN Ondansetron HCl (Zofran Inj) 4 mg IV.PUSH Q6H PRN PRN Reason: NAUSEA OR VOMITING Last Admin: 11/04/18 08:16 Dose: 4 mg Sacubitril/Valsartan (Entresto 24 Mg/26 Mg Tablet) 1 tab PO BID [facility] Last Admin: 11/04/18 08:11 Dose: 1 tab Sodium Chloride (Ns Flush) 2 ml IV.FLUSH BID [facility] Last Admin: 11/04/18 08:11 Dose: 2 ml Sodium Chloride (Ns Flush) 2 ml IV.FLUSH PRN PRN PRN Reason: FLUSH AFTER USING IV ACCESS Last Admin: 11/01/18 15:07 Dose: 2 ml Topiramate (Topamax) 25 mg PO BID [facility] Last Admin: 11/04/18 08:11 Dose: 25 mg Tramadol HCl (Ultram) 50 mg PO Q6H PRN PRN Reason: Pain 1-10 Venlafaxine HCl (Effexor Xr) 75 mg PO DAILY [facility] Last Admin: 11/04/18 08:11 Dose: 75 mg Physical Exam Vital signs: Vital Signs 11/03/18 11:00 11/03/18 12:00 11/03/18 13:00 Temperature 97.9 F Pulse Rate 86 86 78 Respiratory Rate 16 Blood Pressure 93/50 L Pulse Oximetry 94 L 11/03/18 14:00 11/03/18 15:00 11/03/18 16:00 Temperature 98.0 F Pulse Rate 85 78 78 Respiratory Rate 18 Blood Pressure 96/51 L Pulse Oximetry 93 L 11/03/18 17:00 11/03/18 18:00 11/03/18 19:00 Temperature Pulse Rate 77 87 90 Respiratory Rate Blood Pressure Pulse Oximetry 11/03/18 20:00 11/03/18 21:00 11/03/18 21:30 Temperature 98.3 F Pulse Rate 82 82 Respiratory Rate 17 Blood Pressure 82/36 L 85/54 L Pulse Oximetry 95 11/03/18 22:00 11/03/18 23:00 11/04/18 00:00 Temperature 97.8 F Pulse Rate 84 74 75 Respiratory Rate 16 Blood Pressure 89/60 L Pulse Oximetry 96 11/04/18 01:00 11/04/18 02:00 11/04/18 03:00 Temperature Pulse Rate 77 81 75 Respiratory Rate Blood Pressure Pulse Oximetry 11/04/18 03:43 11/04/18 04:00 11/04/18 05:00 Temperature 98.2 F Pulse Rate 88 76 75 Respiratory Rate 19 Blood Pressure 90/57 L Pulse Oximetry 94 L 11/04/18 06:00 11/04/18 07:00 11/04/18 08:00 Temperature 97.8 F Pulse Rate 83 81 86 Respiratory Rate 16 Blood Pressure 97/60 L Pulse Oximetry 94 L 11/04/18 09:00 11/04/18 09:49 Temperature Pulse Rate 82 87 Respiratory Rate Blood Pressure Pulse Oximetry Intake & Output 11/03/18 11/04/18 11/04/18 18:59 06:59 18:59 Intake Total 480 / 480 240 / 240 Output Total 1000 / 1000 Balance -520 / -520 240 / 240 Weight 92.5 kg Intake: Oral 480 / 480 240 / 240 Output: Urine 1000 / 1000 Other: # Voids 2 Date of Last Bowel Movement 10/31/18 10/31/18 10/31/18 - Constitutional no acute distress - Routine HEENT Exam Head: Present: normocephalic Eye: Present: PERRL ENT: Present: mucous membranes moist - Routine Neck Exam Present: full ROM - Routine Respiratory Exam Present: CTA bilaterally - Routine Cardiovascular Exam Present: S1, S2. Absent: murmur, gallop, rubs Comments: multiple unifocal PVC's LifeVest in place. - Routine Abdominal Exam Present: normoactive bowel sounds - Routine Extremities Exam Present: full ROM, pulses intact, normal capillary refill. Absent: cyanosis, clubbing, edema - Routine Skin Exam Present: intact - Routine Neurological Exam Present: oriented X3 - Detailed Neurological Exam: Coma Scale Eye Opening: Spontaneous Verbal Response: Oriented Motor Response: Obey commands Linsey Coma Scale Total: 15 - Routine Psychiatric Exam Present: normal affect Results 10/31/18 06:43 11/03/18 05:38 Comprehensive Metabolic Panel 11/02/18 11/03/18 Range/Units 08:18 05:38 Sodium 144 142 (136-145) meq/L Potassium 4.1 4.2 (3.5-5.1) meq/L Chloride 111 H 110 H (98-107) meq/L Carbon Dioxide 25.3 25.6 (21.0-32.0) meq/L BUN 14 14 (7-18) mg/dL Creatinine 0.85 0.80 (0.50-1.00) mg/dL Calcium 8.9 8.5 (8.5-10.1) mg/dL Intake and Output 11/03/18 11/04/18 11/04/18 22:59 06:59 14:59 Intake Total 480 / 480 240 / 240 Output Total 1000 / 1000 Balance -520 / -520 240 / 240 Intake: Oral 480 / 480 240 / 240 Output: Urine 1000 / 1000 Other: # Voids 2 Date of Last Bowel Movement 10/31/18 10/31/18 10/31/18 Weight 92.5 kg Assessment and Plan - Assessment (1) New onset of congestive heart failure Code(s): I50.9 - Heart failure, unspecified Status: Acute (2) Cardiomyopathy Code(s): I42.9 - Cardiomyopathy, unspecified Status: Acute (3) NSTEMI (non-ST elevated myocardial infarction) Code(s): I21.4 - Non-ST elevation (NSTEMI) myocardial infarction Status: Acute (4) Hypertension Code(s): I10 - Essential (primary) hypertension Status: Acute (5) Diabetes Code(s): E11.9 - Type 2 diabetes mellitus without complications Status: Acute - Plan LifeVest in place at this time. Continue treatment with Entresto and Coreg for CHF. She is cleared for discharge from a cardiology standpoint. We will follow up in our office after discharge from hospital. We will reevaluate LV function with a 2D echo in 3 months, if no improvement we will consider the placement of AICD. The patient was seen and evaluated by Dr. Schuster who participated in care, management and decision making. - Attending Attestation Patient seen and examined. I reviewed and agree with the evaluation and plan as presented. Continue tx for CHF. DC home with Life Vest. Will schedule f/u in our office.
[2018-11-04 11:38] VITALS: PULSE 76
== END 2018-11-04 12:13 | disposition home or self-care (01) | DRG 280 ==
LOC: NEDDLT 21:00 → HCIS 21:10
PROVIDERS: ADMIT Internal Medicine; ATTEND Internal Medicine
DX: I50.21 Acute systolic (congestive) heart failure; K21.9 Gastro-esophageal reflux disease without esophagitis; Z88.0 Allergy status to penicillin; Z88.6 Allergy status to analgesic agent; I08.1 Rheumatic disorders of both mitral and tricuspid valves; I42.9 Cardiomyopathy, unspecified; I95.9 Hypotension, unspecified; M06.9 Rheumatoid arthritis, unspecified; I47.2 Ventricular tachycardia; Z79.84 Long term (current) use of oral hypoglycemic drugs; I11.0 Hypertensive heart disease with heart failure; F41.8 Other specified anxiety disorders; J45.909 Unspecified asthma, uncomplicated; I21.4 Non-ST elevation (NSTEMI) myocardial infarction; E78.00 Pure hypercholesterolemia, unspecified; Z88.2 Allergy status to sulfonamides; E11.9 Type 2 diabetes mellitus without complications
CPT/HCPCS: 71020; 71046; 78452; 80048; 80053; 81001; 82272; 82550; 82552; 82948; 82962; 83520; 83880; 84484; 85025; 85027; 85610; 85730; 87040; 90774; 90775; 90784; 93005; 93017; 93306; 94664; 96374; 96375; 97162; 99285; A9502; C8952; J1644; J2405; J2785; J2920; J7050